=== PATIENT | female | born 1970 | race Caucasian/White ===

== ENCOUNTER 2016-07-25 07:30 | Inpatient (IN) | payer BC ==
[~2016-07-25 07:30] MED LIST: Lactated Ringers 1,000 ML IV SCH; Lidocaine 1%/Sod Bicarbonate in NS 8.4% 1 ML Syringe IV PRN; Sodium Chloride 0.9% 10 ML Syringe FLUSH PRN
[2016-08-22] MEDS ORDERED: Lidocaine 1%/Sod Bicarbonate in NS 8.4% 1 ML Syringe PRN (00:01)
[2016-08-22] MEDS ORDERED: Lactated Ringers 1,000 ML IV SCH (00:01)
[2016-08-22] MEDS ORDERED: Sodium Chloride 0.9% 10 ML Syringe FLUSH PRN (00:01)
[2016-08-22] MEDS ORDERED: ceFAZolin 1 GM Vial ONE (08:42)
--- NOTE | 2016-08-22 09:00 | PCM.PREANE ---
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.), Tingling (left foot noted currently) Other: Reports: Easy Bruising, Thyroid Problems (hypothyroid), Depression, Anxiety - Physical Assessment NPO Status Date: 08/21/16 NPO Status Time: 23:59 Pulse: 91 O2 Sat by Pulse Oximetry: 95 Respiratory Rate: 20 Blood Pressure: 169/91 Temperature: 37.6 C Height: 1.6 m Weight: 113 kg ASA Class: 2 Mental Status: Alert & Oriented x3 Airway Class: Mallampati = 3 Dentition: Reports: Normal Dentition, Caries Thyro-Mental Finger Breadths: 3 Mouth Opening Finger Breadths: 3 ROM/Head Extension: Full Lungs: Clear to auscultation, Normal respiratory effort Cardiovascular: Regular Rate, Regular Rhythm, No Murmurs - Lab Values: Laboratory Last Values MRSA (PCR) Negative 08/05/16 16:43 All labs reviewed and noted and within acceptable ranges to proceed with scheduled procedure. Platelets= 303,000 - Imaging/EKG Impressions: EKG: sinus rhythm rate= 80, probable left atrial enlargement. - Allergies Allergies/Adverse Reactions: Allergies Allergy/AdvReac Type Severity Reaction Status Date / Time adhesive Allergy Rash Verified 08/19/16 11:40 doxycycline AdvReac Nausea Verified 08/22/16 08:52 Sulfa (Sulfonamide AdvReac Tachycardia Verified 08/01/16 11:52 Antibiotics) - Anesthesia Plan Pre-Op Medication Ordered: None - Acknowledgements Anesthesia Type Planned: Spinal Pt an Appropriate Candidate for the Planned Anesthesia: Yes Alternatives and Risks of Anesthesia Discussed w Pt/Guardian: Yes Pt/Guardian Understands and Agrees with Anesthesia Plan: Yes PreAnesthesia Questionnaire HEENT History: Reports: None Other HEENT History: wears glasses Cardiovascular History: Reports: Hypertension Respiratory History: Reports: None Other Respiratory History: walking pneumonia Gastrointestinal History: Reports: GERD, Other (See Below) Other Gastrointestinal History: Postoperative nausea and vomiting Genitourinary History: Reports: None Other Genitourinary History: issues with bladder- hard time starting stream DISCHARGE SPECIALIST History: Reports: Musculoskeletal History: Reports: Other (See Below) Other Musculoskeletal History: Right knee pain Neurological History: Reports: Other (See Below) Other Neuro History: Resendez's Palsy Psychiatric History: Reports: Anxiety, Depression, Other (See Below) Other Psychiatric History: Grief, insomnia Endocrine/Metabolic History: Reports: Hypothyroidism Hematologic History: Reports: None Immunologic History: Reports: None Oncologic (Cancer) History: Reports: None Dermatologic History: Reports: None - Past Surgical History Head Surgeries/Procedures: Reports: None HEENT Surgical History: Reports: Tonsillectomy Cardiovascular Surgical History: Reports: None Respiratory Surgical History: Reports: None GI Surgical History: Reports: None Female Surgical History: Reports: Hysterectomy Endocrine Surgical History: Reports: None Neurological Surgical History: Reports: None Musculoskeletal Surgical History: Reports: None Oncologic Surgical History: Reports: None Dermatological Surgical History: Reports: None - SUBSTANCE USE Smoking Status *Q: Never Smoker Second Hand Smoke Exposure: No Recreational Drug Use History: No - HOME MEDS Home Medications: Home Meds Citalopram Hydrobromide [Celexa] 40 mg PO DAILY 11/08/14 [History] Hydrocodone/Acetaminophen [Hydrocodon-Acetaminophen 5-325] 1 tab PO Q4H PRN [History] LORazepam [Ativan] 1 mg PO QID PRN 11/08/14 [History] Levothyroxine 112 mcg PO DAILY 11/08/14 [History] Pantoprazole [ProTONIX] 40 mg PO DAILY 11/08/14 [History] Verapamil [Verelan] 240 mg PO DAILY 11/08/14 [History] buPROPion [Wellbutrin XL] 450 mg PO DAILY 11/08/14 [History] Furosemide [Lasix] 20 mg PO DAILY PRN 04/23/15 [History] Pregabalin [Lyrica] 150 mg PO BID PRN 08/19/16 [History] Zolpidem [Ambien] 10 mg PO BEDTIME 08/19/16 [History] oxyCODONE ER [OxyCONTIN] 10 mg PO BID PRN 08/19/16 [History] - CURRENT (IN HOUSE) MEDS Current Meds: Current Medications Aspirin (Ecotrin) 325 mg PO BID [facility] Bisacodyl (Dulcolax) 5 mg PO DAILY PRN PRN Reason: Constipation Morphine Sulfate 8 mg/Epinephrine HCl 0.3 mg/Cefuroxime Sodium 750 mg/Ketorolac Tromethamine 30 mg/Sodium Chloride 27.9 ml 0 mg .XX ONETIME ONE Stop: 08/22/16 10:31 Cyclobenzaprine HCl (Flexeril) 10 mg PO TID PRN PRN Reason: Spasms Docusate Sodium (Colace) 100 mg PO BID [facility] Famotidine (Pepcid) 20 mg PO Q12H [facility] Lactated Ringer's (Ringers, Lactated) 1,000 mls @ 125 mls/hr IV ASDIRECTED [facility] Cefazolin Sodium/Dextrose 2 gm (/ Premix) 50 mls @ 100 mls/hr IV Q8H [facility] Stop: 08/22/16 23:44 Ketorolac Tromethamine (Toradol) 15 mg IVPUSH Q6H PRN PRN Reason: Pain Stop: 08/22/16 13:14 Lidocaine/Sodium Bicarbonate (Buffered Lidocaine 1% In Ns 8.4%) 0.25 ml IV ONETIME PRN PRN Reason: Prior to IV Start Magnesium Hydroxide (Milk Of Magnesia) 30 ml PO BID PRN PRN Reason: Constipation Morphine Sulfate (Morphine) 2 mg IVPUSH Q2H PRN PRN Reason: Breakthrough Pain Multivitamins (Thera) 1 each PO WITHBREAKFAST [facility] Naloxone HCl (Narcan) 0.1 mg IVPUSH Q5M PRN PRN Reason: Oversedation Stop: 08/22/16 07:29 Ondansetron HCl (Zofran) 4 mg IVPUSH Q6H PRN PRN Reason: Nausea/Vomiting Scopolamine (Transderm-Scop) 1.5 mg TRDERM ONETIME ONE Stop: 08/22/16 08:18 Senna (Senna) 8.6 mg PO BID PRN PRN Reason: Constipation Sodium Chloride (Saline Flush) 10 ml FLUSH ASDIRECTED PRN PRN Reason: Keep Vein Open Tapentadol (Nucynta) 50 - 100 mg PO Q6H PRN PRN Reason: Pain Discontinued Medications Bupivacaine HCl (Marcaine 0.25%) Confirm Administered Dose 30 ml .ROUTE .STK- MED ONE Stop: 08/22/16 08:43 Cefazolin Sodium (Ancef) Confirm Administered Dose 2 gm .ROUTE .STK-MED ONE Stop: 08/22/16 08:43 Lactated Ringer's (Ringers, Lactated) 1,000 mls @ 125 mls/hr IV ASDIRECTED [facility] Iodine (Iodine 2% Mild Tincture) Confirm Administered Dose 30 ml .ROUTE .STK- MED ONE Stop: 08/22/16 08:43 Lidocaine/Sodium Bicarbonate (Buffered Lidocaine 1% In Ns 8.4%) 0.25 ml IV ONETIME PRN PRN Reason: Prior to IV Start Sodium Chloride (Saline Flush) 10 ml FLUSH ASDIRECTED PRN PRN Reason: Keep Vein Open Tranexamic Acid (Cyklokapron) Confirm Administered Dose 1,000 mg .ROUTE .STK- MED ONE Stop: 08/22/16 08:43
[2016-08-22] MEDS ORDERED: Morphine PF 10 MG/10 ML SDV ONE (09:28)
[2016-08-22] MEDS ORDERED: Scopolamine 1.5 MG Transdermal Patch TRDERM ONE (09:30)
[2016-08-22] MEDS ORDERED: Lactated Ringers 1,000 ML ONE ×2 (09:31→12:22)
[2016-08-22] MEDS ORDERED: Midazolam 1 MG/ML 2 ML SDV ONE ×5 (09:32→12:29)
[2016-08-22] MEDS ORDERED: Propofol 200 MG/20 ML SDV ONE ×4 (09:32→12:22)
[2016-08-22] MEDS ORDERED: fentaNYL 100 MCG/2 ML SDV ONE (09:32)
[2016-08-22] MEDS ORDERED: Ondansetron 4 MG/2 ML SDV IVPUSH PRN ×2 (10:44→12:00)
[2016-08-22] MEDS ORDERED: Meperidine PF 50 MG/ML Syringe IVPUSH PRN (10:44)
[2016-08-22] MEDS ORDERED: HYDROmorphone 0.5 MG/0.5 ML Syringe IVPUSH PRN (10:44)
[2016-08-22] MEDS ORDERED: ePHEDrine 50 MG/ML SDV IVPUSH PRN (10:44)
[2016-08-22] MEDS ORDERED: diphenhydrAMINE 50 MG/ML SDV IVPUSH PRN (10:44)
[2016-08-22] MEDS ORDERED: fentaNYL 100 MCG/2 ML SDV IVPUSH PRN (10:44)
[2016-08-22] MEDS ORDERED: Midazolam 1 MG/ML 2 ML SDV IVPUSH PRN (10:44)
[2016-08-22] MEDS ORDERED: Phenylephrine 1 MG in Sodium Chloride 0.9% 10 ML IV SCH (10:45)
[2016-08-22] MEDS ORDERED: Phenylephrine/Normal Saline 100 MCG/ML 10 ML Syringe ONE (11:02)
[2016-08-22] MEDS: Iodine/Sodium Iodide 2% Tincture 30 ML Bottle ONE ×2 (11:06→11:50)
[2016-08-22] MEDS: ceFAZolin 1 GM Vial ONE ×2 (11:09→11:54)
[2016-08-22] MEDS: Morphine 8 MG, EPINEPHrine 0.3 MG, Cefuroxime 750 MG, Ketorolac 30 MG, Sodium Chloride ... ONE ×15 (11:10→19:48)
[2016-08-22] MEDS: Bupivacaine 0.25% 30 ML SDV ONE ×2 (11:10→12:00)
[2016-08-22] MEDS ORDERED: Magnesium Hydroxide 400 MG/5 ML Susp 30 ML Cup PO PRN (12:00)
[2016-08-22] MEDS ORDERED: Ketorolac 15 MG/ML SDV IVPUSH PRN ×2 (12:00→20:55)
[2016-08-22] MEDS ORDERED: Sennosides 8.6 MG Tab PO PRN (12:00)
[2016-08-22] MEDS ORDERED: Bisacodyl 5 MG Tab PO PRN (12:00)
[2016-08-22] MEDS ORDERED: Naloxone 0.4 MG/ML SDV IVPUSH PRN (12:00)
--- NOTE | 2016-08-22 12:51 | PCM.POSTAN ---
POST ANESTHESIA ASSESSMENT - MENTAL STATUS Mental Status: alert - VITAL SIGNS Pulse Rate: 70 SaO2: 91 Resp Rate: 13 Blood Pressure: 120/66 Temperature: 36.3 C - RESPIRATORY Respiratory Status: respiratory rate WNL, airway patent, O2 saturation stable - CARDIOVASCULAR CV Status: pulse rate WNL, blood pressure stable - GASTROINTESTINAL GI Status: no symptoms - POST OP HYDRATION Hydration Status: adequate & stable
[2016-08-22] MEDS: Morphine 2 MG/ML Syringe IVPUSH PRN ×2 (15:10→17:08)
[2016-08-22] MEDS: Cyclobenzaprine 10 MG Tab PO PRN ×2 (15:41→23:33)
[2016-08-22] MEDS: ceFAZolin 2 GM in Premix Bag 1 BAG IV SCH (17:28)
--- NOTE | 2016-08-22 17:29 | PCM.CONSN ---
- General Info Date of Service: 08/22/16 Subjective Update: Patient is a 45 year old morbidly obese female post op, right total knee arthroplasty. Had a history of knee pain for over 7 years. Denies complaints at this time. Hospitalist service has been asked to help management post op medical needs. Functional Status: Reports: pain controlled, tolerating diet, urinating - Review of Systems General: Reports: No Symptoms HEENT: Reports: no symptoms Pulmonary: Reports: no symptoms Cardiovascular: Reports: No Symptoms Gastrointestinal: Reports: No symptoms Genitourinary: Reports: no symptoms Musculoskeletal: Reports: no symptoms Skin: Reports: no symptoms Neurological: Reports: No Symptoms Psychiatric: Reports: no symptoms - Patient Data Vitals - most recent: Last Vital Signs Temp 36.5 C 08/22/16 13:45 Pulse 71 08/22/16 13:45 Resp 14 08/22/16 13:45 BP 116/71 08/22/16 13:45 Pulse Ox 95 08/22/16 13:45 Weight - most recent: 113 kg I&O - last 24 hours: Intake & Output 08/22/16 08/22/16 08/22/16 06:59 14:59 22:59 Intake Total 350 Output Total 1000 Balance -650 Med Orders - Current: Current Medications Aspirin (Ecotrin) 325 mg PO BID [facility] Bisacodyl (Dulcolax) 5 mg PO DAILY PRN PRN Reason: Constipation Cyclobenzaprine HCl (Flexeril) 10 mg PO TID PRN PRN Reason: Spasms Last Admin: 08/22/16 15:41 Dose: 10 mg Docusate Sodium (Colace) 100 mg PO BID [facility] Famotidine (Pepcid) 20 mg PO BID [facility] Cefazolin Sodium/Dextrose 2 gm (/ Premix) 50 mls @ 100 mls/hr IV Q8H [facility] Stop: 08/23/16 10:29 Ketorolac Tromethamine (Toradol) 15 mg IVPUSH Q6H PRN PRN Reason: Pain Stop: 08/22/16 18:01 Last Admin: 08/22/16 14:35 Dose: 15 mg Magnesium Hydroxide (Milk Of Magnesia) 30 ml PO BID PRN PRN Reason: Constipation Morphine Sulfate (Morphine) 2 mg IVPUSH Q2H PRN PRN Reason: Breakthrough Pain Last Admin: 08/22/16 17:08 Dose: 2 mg [facility] Ondansetron HCl (Zofran) 4 mg IVPUSH Q6H PRN PRN Reason: Nausea/Vomiting Senna (Senna) 8.6 mg PO BID PRN PRN Reason: Constipation Tapentadol (Nucynta) 50 - 100 mg PO Q6H PRN PRN Reason: Pain Discontinued Medications Bupivacaine HCl (Marcaine 0.25%) Confirm Administered Dose 30 ml .ROUTE .STK- MED ONE Stop: 08/22/16 08:43 Last Admin: 08/22/16 12:00 Dose: 30 ml Cefazolin Sodium (Ancef) Confirm Administered Dose 2 gm .ROUTE .STK-MED ONE Stop: 08/22/16 08:43 Cefazolin Sodium (Ancef) Confirm Administered Dose 2 gm .ROUTE .STK-MED ONE Stop: 08/22/16 09:32 Last Admin: 08/22/16 11:54 Dose: 2 gm Morphine Sulfate 8 mg/Epinephrine HCl 0.3 mg/Cefuroxime Sodium 750 mg/Ketorolac Tromethamine 30 mg/Sodium Chloride 27.9 ml 0 mg .XX ONETIME ONE Stop: 08/22/16 10:31 Last Admin: 08/22/16 11:59 Dose: 788.3 mg Diphenhydramine HCl (Benadryl) 25 mg IVPUSH Q6H PRN PRN Reason: pruritis Stop: 08/22/16 13:30 Ephedrine Sulfate (Ephedrine Sulfate) 5 mg IVPUSH ASDIRECTED PRN PRN Reason: Hypotension Stop: 08/22/16 13:30 Fentanyl (Sublimaze) Confirm Administered Dose 100 mcg .ROUTE .STK-MED ONE Stop: 08/22/16 09:33 Fentanyl (Sublimaze) 50 mcg IVPUSH Q5M PRN PRN Reason: Pain Stop: 08/22/16 11:00 Hydromorphone HCl (Dilaudid) 0.5 mg IVPUSH Q15M PRN PRN Reason: severe pain Stop: 08/22/16 11:00 Lactated Ringer's (Ringers, Lactated) 1,000 mls @ 125 mls/hr IV ASDIRECTED [facility] Lactated Ringer's (Ringers, Lactated) 1,000 mls @ 125 mls/hr IV ASDIRECTED [facility] Stop: 08/22/16 23:00 Last Admin: 08/22/16 09:15 Dose: 125 mls/hr Lidocaine HCl (Xylocaine-Mpf 1%) Confirm Administered Dose 10 mls @ as directed .ROUTE .STK-MED ONE Stop: 08/22/16 09:32 Lactated Ringer's (Ringers, Lactated) Confirm Administered Dose 1,000 mls @ as directed .ROUTE .STK-MED ONE Stop: 08/22/16 09:32 Phenylephrine HCl 1 mg/ Sodium (Chloride) 10.1 mls @ 1 mls/sec IV TITRATE [facility] Stop: 08/22/16 13:30 Lactated Ringer's (Ringers, Lactated) Confirm Administered Dose 1,000 mls @ as directed .ROUTE .STK-MED ONE Stop: 08/22/16 12:23 Iodine (Iodine 2% Mild Tincture) Confirm Administered Dose 30 ml .ROUTE .STK- MED ONE Stop: 08/22/16 08:43 Last Admin: 08/22/16 11:50 Dose: 18 ml Lidocaine/Sodium Bicarbonate (Buffered Lidocaine 1% In Ns 8.4%) 0.25 ml IV ONETIME PRN PRN Reason: Prior to IV Start Lidocaine/Sodium Bicarbonate (Buffered Lidocaine 1% In Ns 8.4%) 0.25 ml .XX ONETIME PRN PRN Reason: Prior to IV Start Stop: 08/22/16 15:00 Last Admin: 08/22/16 09:14 Dose: 0.25 ml Meperidine HCl (Demerol) 12.5 mg IVPUSH ONETIME PRN PRN Reason: shivering Stop: 08/23/16 10:45 Midazolam HCl (Versed 1 Mg/Ml) Confirm Administered Dose 2 mg .ROUTE .STK-MED ONE Stop: 08/22/16 09:33 Midazolam HCl (Versed 1 Mg/Ml) Confirm Administered Dose 2 mg .ROUTE .STK-MED ONE Stop: 08/22/16 10:01 Midazolam HCl (Versed 1 Mg/Ml) 2 mg IVPUSH ONETIME PRN PRN Reason: Sedation Stop: 08/22/16 13:30 Midazolam HCl (Versed 1 Mg/Ml) Confirm Administered Dose 2 mg .ROUTE .STK-MED ONE Stop: 08/22/16 11:01 Midazolam HCl (Versed 1 Mg/Ml) Confirm Administered Dose 2 mg .ROUTE .STK-MED ONE Stop: 08/22/16 12:23 Midazolam HCl (Versed 1 Mg/Ml) Confirm Administered Dose 2 mg .ROUTE .STK-MED ONE Stop: 08/22/16 12:30 Morphine Sulfate (Duramorph Pf) Confirm Administered Dose 10 mg .ROUTE .STK-MED ONE Stop: 08/22/16 09:29 Naloxone HCl (Narcan) 0.1 mg IVPUSH Q5M PRN PRN Reason: Oversedation Stop: 08/22/16 12:16 Ondansetron HCl (Zofran) 4 mg IVPUSH ONETIME PRN PRN Reason: Nausea/Vomiting Stop: 08/22/16 13:30 Phenylephrine HCl (Phenylephrine In Ns 100 Mcg/Ml) Confirm Administered Dose 1 mg .ROUTE .STK-MED ONE Stop: 08/22/16 11:03 Propofol (Diprivan 20 Ml) Confirm Administered Dose 400 mg .ROUTE .STK-MED ONE Stop: 08/22/16 09:33 Propofol (Diprivan 20 Ml) Confirm Administered Dose 200 mg .ROUTE .STK-MED ONE Stop: 08/22/16 10:46 Propofol (Diprivan 20 Ml) Confirm Administered Dose 200 mg .ROUTE .STK-MED ONE Stop: 08/22/16 11:09 Propofol (Diprivan 20 Ml) Confirm Administered Dose 200 mg .ROUTE .STK-MED ONE Stop: 08/22/16 12:23 Scopolamine (Transderm-Scop) 1.5 mg TRDERM ONETIME ONE Stop: 08/22/16 09:31 Last Admin: 08/22/16 09:32 Dose: 1.5 mg Sodium Chloride (Saline Flush) 10 ml FLUSH ASDIRECTED PRN PRN Reason: Keep Vein Open Sodium Chloride (Saline Flush) 10 ml FLUSH ASDIRECTED PRN PRN Reason: Keep Vein Open Stop: 08/22/16 15:00 Tranexamic Acid (Cyklokapron) Confirm Administered Dose 1,000 mg .ROUTE .STK- MED ONE Stop: 08/22/16 08:43 Last Admin: 08/22/16 12:06 Dose: 1,000 mg - Exam Quality Assessment: DVT prophylaxis General: alert, oriented, cooperative, no acute distress HEENT: Pupils equal, Pupils reactive, EOMI Neck: supple, trachea midline, no JVD Lungs: Normal respiratory effort Cardiovascular: Regular Rate, Regular Rhythm Abdomen: bowel sounds present, soft, no tenderness, no distension (Female) Exam: Deferred Back Exam: Normal Inspection Extremities: normal pulses Skin: warm Wound/Incisions: dressing dry and intact, no drainage Neurological: no new focal deficit, normal speech Psy/Mental Status: alert, normal affect, normal mood Consult PN Assessment/Plan POD#: 0 Procedures: Procedures COMPLETE CBC W/AUTO DIFF WBC (04/23/15) COMPREHEN METABOLIC PANEL (04/23/15) CULTURE AEROBIC IDENTIFY (10/28/13) ELECTROCARDIOGRAM TRACING (04/23/15) EMERGENCY DEPT VISIT (04/23/15) EMERGENCY DEPT VISIT (03/07/15) EMERGENCY DEPT VISIT (11/08/14) MASSAGE THERAPY (06/18/13) MICROBE SUSCEPTIBLE MARIMAR (10/28/13) MRI JNT OF LWR EXTRE W/O DYE (08/05/15) N BLOCK INJ TRIGEMINAL (03/07/15) ROUTINE VENIPUNCTURE (04/23/15) THER/PROPH/DIAG INJ SC/IM (11/08/14) THERAPEUTIC EXERCISES (06/18/13) URINALYSIS AUTO W/SCOPE (04/23/15) URINE BACTERIA CULTURE (10/28/13) US URINE CAPACITY MEASURE (04/23/15) (1) Morbid obesity with BMI of 40.0-44.9, adult SNOMED Code(s): 009776881 Code(s): E66.01 - MORBID (SEVERE) OBESITY DUE TO EXCESS CALORIES; Z68.41 - BODY MASS INDEX (BMI) 40.0-44.9, ADULT Current Visit: Yes (2) Osteoarthritis SNOMED Code(s): 147918864 Code(s): M19.90 - UNSPECIFIED OSTEOARTHRITIS, UNSPECIFIED SITE Current Visit: Yes (3) Hypertension SNOMED Code(s): 04888044 Code(s): I10 - ESSENTIAL (PRIMARY) HYPERTENSION Current Visit: Yes (4) Hypothyroid SNOMED Code(s): 37336698 Code(s): E03.9 - HYPOTHYROIDISM, UNSPECIFIED Current Visit: Yes (5) Anxiety SNOMED Code(s): 46749296 Code(s): F41.9 - ANXIETY DISORDER, UNSPECIFIED Current Visit: No (6) Hypertensive heart disease SNOMED Code(s): 40280237 Code(s): I11.9 - HYPERTENSIVE HEART DISEASE WITHOUT HEART FAILURE Current Visit: No (7) History of arthroplasty of right knee SNOMED Code(s): 810627950, 423948403 Code(s): Z96.651 - PRESENCE OF RIGHT ARTIFICIAL KNEE JOINT Current Visit: Yes Problem List Initiated/Reviewed/Updated: Yes Plan: Impression: POD 0, S/P Right knee arthroplasty History of right knee pian; documented 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
[2016-08-22] MEDS ORDERED: HYDROmorphone 0.5 MG/0.5 ML Syringe IVPUSH ONE (18:46)
[2016-08-22] MEDS ORDERED: HYDROmorphone 0.5 MG/0.5 ML Syringe ONE (19:19)
[2016-08-22] MEDS ORDERED: buPROPion 150 MG Tab.ER PO SCH (21:00)
[2016-08-22] MEDS ORDERED: Famotidine 20 MG Tab PO SCH (21:00)
[2016-08-22] MEDS ORDERED: Citalopram 20 MG Tab PO SCH (21:00)
[2016-08-22] MEDS ORDERED: Verapamil 120 MG Tab.ER PO SCH (21:00)
[2016-08-22] MEDS ORDERED: Levothyroxine 112 MCG Tab PO SCH (21:00)
[2016-08-22] MEDS ORDERED: Pantoprazole 40 MG Tab.CR PO SCH (21:00)
[2016-08-22] MEDS: Docusate Sodium 100 MG Cap PO SCH (21:11)
[2016-08-22] MEDS: Pregabalin 75 MG Cap PO PRN (21:11)
[2016-08-22] MEDS: Pantoprazole 40 MG Tab.CR PO SCH (21:12)
[2016-08-22] MEDS: Levothyroxine 112 MCG Tab PO SCH (21:13)
[2016-08-22] MEDS: buPROPion 150 MG Tab.ER PO SCH (21:13)
[2016-08-22] MEDS: Verapamil 120 MG Tab.ER PO SCH (21:14)
[2016-08-22] MEDS: Citalopram 20 MG Tab PO SCH (21:16)
[2016-08-22] MEDS ORDERED: Ketorolac 15 MG/ML SDV IVPUSH ONE (23:22)
[2016-08-23] MEDS: Morphine 2 MG/ML Syringe IVPUSH PRN ×4 (01:28→19:53)
[2016-08-23] MEDS: ceFAZolin 2 GM in Premix Bag 1 BAG IV SCH ×2 (01:29→09:54)
--- NOTE | 2016-08-23 08:51 | PCM.PN ---
- General Info Date of Service: 08/23/16 Admission Dx/Problem (Free Text): POD #1 Rt TKA Pain is out of control this morning and overnight. She is anxious and nauseous "from the pain", despite zofran and scopolamine patch. No other symptoms of SOB, palpitations, CP, abd pain, is voiding without problems. Functional Status: Reports: tolerating diet, ambulating, urinating. Denies: pain controlled, new symptoms - Review of Systems General: Reports: No Symptoms HEENT: Reports: no symptoms Pulmonary: Reports: no symptoms Cardiovascular: Reports: No Symptoms Gastrointestinal: Reports: No symptoms Genitourinary: Reports: no symptoms Musculoskeletal: Reports: leg pain Skin: Reports: no symptoms Neurological: Reports: No Symptoms Psychiatric: Reports: no symptoms - Patient Data Vitals - most recent: Last Vital Signs Temp 99.0 F 08/23/16 08:40 Pulse 82 08/23/16 08:40 Resp 16 08/23/16 08:40 BP 124/63 08/23/16 08:40 Pulse Ox 91 L 08/23/16 08:40 Weight - most recent: 258 lb 14.4 oz I&O - last 24 hours: Intake & Output 08/22/16 08/23/16 08/23/16 22:59 06:59 14:59 Intake Total 1000 Output Total 900 275 Balance 100 -275 Lab Results last 24 hrs: Laboratory Results - last 24 hr 08/23/16 08/23/16 Range/Units 06:00 06:00 WBC 7.96 (3.98-10.04) K/mm3 RBC 3.91 L (3.98-5.22) M/mm3 Hgb 11.2 (11.2-15.7) gm/L Hct 34.4 (34.1-44.9) % MCV 88.0 (79.4-94.8) fl MCH 28.6 (25.6-32.2) pg MCHC 32.6 (32.2-35.5) g/dl RDW Std Deviation 48.7 H (36.4-46.3) fL Plt Count 236 (182-369) K/mm3 MPV 9.3 L (9.4-12.3) fl Neut % (Auto) 55.9 (34.0-71.1) % Lymph % (Auto) 20.9 (19.3-51.7) % Leake % (Auto) 15.8 H (4.7-12.5) % Eos % (Auto) 6.7 H (0.7-5.8) Baso % (Auto) 0.4 (0.1-1.2) % Neut # (Auto) 4.46 (1.56-6.13) K/mm3 Lymph # (Auto) 1.66 (1.18-3.74) K/mm3 Leake # (Auto) 1.26 H (0.24-0.36) K/mm3 Eos # (Auto) 0.53 H (0.04-0.36) K/mm3 Baso # (Auto) 0.03 (0.01-0.08) K/mm3 Manual Slide Review Normal smear Sodium 138 (136-145) mEq/L Potassium 3.9 (3.5-5.1) mEq/L Chloride 102 (98-107) mEq/L Carbon Dioxide 30 (21-32) mEq/L Anion Gap 9.9 (5-15) BUN 14 (7-18) mg/dL Creatinine 1.0 (0.55-1.02) mg/dL Est Cr Clr Drug Dosing 59.37 mL/min Estimated GFR (MDRD) > 60 (>60) mL/min BUN/Creatinine Ratio 14.0 (14-18) Glucose 111 H (74-106) mg/dL Calcium 8.3 L (8.5-10.1) mg/dL Total Bilirubin 0.3 (0.2-1.0) mg/dL AST 20 (15-37) U/L ALT 21 (14-59) U/L Alkaline Phosphatase 62 (46-116) U/L Total Protein 6.4 (6.4-8.2) g/dl Albumin 3.2 L (3.4-5.0) g/dl Globulin 3.2 gm/dL Albumin/Globulin Ratio 1.0 (1-2) Med Orders - Current: Current Medications Aspirin (Ecotrin) 325 mg PO BID [facility] Bisacodyl (Dulcolax) 5 mg PO DAILY PRN PRN Reason: Constipation Bupropion HCl (Wellbutrin Xl) [address] [facility] Last Admin: 08/22/16 21:13 Dose: 450 mg Citalopram Hydrobromide (Celexa) [address] [facility] Last Admin: 08/22/16 21:16 Dose: 40 mg Cyclobenzaprine HCl (Flexeril) 10 mg PO TID PRN PRN Reason: Spasms Last Admin: 08/22/16 23:33 Dose: 10 mg Docusate Sodium (Colace) [address] [facility] Last Admin: 08/22/16 21:11 Dose: 100 mg Cefazolin Sodium/Dextrose 2 gm (/ Premix) 50 mls @ 100 mls/hr IV Q8H [facility] Stop: 08/23/16 10:29 Last Admin: 08/23/16 01:29 Dose: 100 mls/hr Levothyroxine Sodium (Levothyroxine) [address] [facility] Last Admin: 08/22/16 21:13 Dose: 112 mcg Magnesium Hydroxide (Milk Of Magnesia) 30 ml PO BID PRN PRN Reason: Constipation Morphine Sulfate (Morphine) 2 mg IVPUSH Q2H PRN PRN Reason: Breakthrough Pain Last Admin: 08/23/16 01:28 Dose: 2 mg Multivitamins (Thera) [address] [facility] Ondansetron HCl (Zofran) 4 mg IVPUSH Q6H PRN PRN Reason: Nausea/Vomiting Pantoprazole Sodium (Protonix) [address] [facility] Last Admin: 08/22/16 21:12 Dose: 40 mg Pregabalin (Lyrica) 150 mg PO BID PRN PRN Reason: Pain Last Admin: 08/22/16 21:11 Dose: 150 mg Senna (Senna) 8.6 mg PO BID PRN PRN Reason: Constipation Tapentadol (Nucynta) 50 - 100 mg PO Q6H PRN PRN Reason: Pain Last Admin: 08/23/16 05:09 Dose: 100 mg Verapamil HCl (Calan Sr) [address] [facility] Last Admin: 08/22/16 21:14 Dose: 240 mg Discontinued Medications Bupivacaine HCl (Marcaine 0.25%) Confirm Administered Dose 30 ml .ROUTE .STK- MED ONE Stop: 08/22/16 08:43 Last Admin: 08/22/16 12:00 Dose: 30 ml Bupropion HCl (Wellbutrin Xl) [address] [facility] Cefazolin Sodium (Ancef) Confirm Administered Dose 2 gm .ROUTE .STK-MED ONE Stop: 08/22/16 08:43 Cefazolin Sodium (Ancef) Confirm Administered Dose 2 gm .ROUTE .STK-MED ONE Stop: 08/22/16 09:32 Last Admin: 08/22/16 11:54 Dose: 2 gm Citalopram Hydrobromide (Celexa) [address] [facility] Morphine Sulfate 8 mg/Epinephrine HCl 0.3 mg/Cefuroxime Sodium 750 mg/Ketorolac Tromethamine 30 mg/Sodium Chloride 27.9 ml 0 mg .XX ONETIME ONE Stop: 08/22/16 10:31 Last Admin: 08/22/16 19:48 Dose: Not Given Diphenhydramine HCl (Benadryl) 25 mg IVPUSH Q6H PRN PRN Reason: pruritis Stop: 08/22/16 13:30 Ephedrine Sulfate (Ephedrine Sulfate) 5 mg IVPUSH ASDIRECTED PRN PRN Reason: Hypotension Stop: 08/22/16 13:30 Famotidine (Pepcid) [address] [facility] Last Admin: 08/22/16 21:12 Dose: 20 mg Fentanyl (Sublimaze) Confirm Administered Dose 100 mcg .ROUTE .STK-MED ONE Stop: 08/22/16 09:33 Fentanyl (Sublimaze) 50 mcg IVPUSH Q5M PRN PRN Reason: Pain Stop: 08/22/16 11:00 Hydromorphone HCl (Dilaudid) 0.5 mg IVPUSH Q15M PRN PRN Reason: severe pain Stop: 08/22/16 11:00 Hydromorphone HCl (Dilaudid) 0.5 mg IVPUSH ONETIME ONE Stop: 08/22/16 18:47 Last Admin: 08/22/16 18:56 Dose: 0.5 mg Hydromorphone HCl (Dilaudid) Confirm Administered Dose 0.5 mg .ROUTE .STK-MED ONE Stop: 08/22/16 19:20 Last Admin: 08/22/16 19:25 Dose: 0.5 mg Lactated Ringer's (Ringers, Lactated) 1,000 mls @ 125 mls/hr IV ASDIRECTED [facility] Lactated Ringer's (Ringers, Lactated) 1,000 mls @ 125 mls/hr IV ASDIRECTED [facility] Stop: 08/22/16 23:00 Last Admin: 08/22/16 09:15 Dose: 125 mls/hr Lidocaine HCl (Xylocaine-Mpf 1%) Confirm Administered Dose 10 mls @ as directed .ROUTE .STK-MED ONE Stop: 08/22/16 09:32 Lactated Ringer's (Ringers, Lactated) Confirm Administered Dose 1,000 mls @ as directed .ROUTE .STK-MED ONE Stop: 08/22/16 09:32 Phenylephrine HCl 1 mg/ Sodium (Chloride) 10.1 mls @ 1 mls/sec IV TITRATE [facility] Stop: 08/22/16 13:30 Lactated Ringer's (Ringers, Lactated) Confirm Administered Dose 1,000 mls @ as directed .ROUTE .STK-MED ONE Stop: 08/22/16 12:23 Iodine (Iodine 2% Mild Tincture) Confirm Administered Dose 30 ml .ROUTE .STK- MED ONE Stop: 08/22/16 08:43 Last Admin: 08/22/16 11:50 Dose: 18 ml Ketorolac Tromethamine (Toradol) 15 mg IVPUSH Q6H PRN PRN Reason: Pain Stop: 08/22/16 18:01 Last Admin: 08/22/16 14:35 Dose: 15 mg Ketorolac Tromethamine (Toradol) 15 mg IVPUSH Q6H PRN PRN Reason: Pain Stop: 08/22/16 20:56 Ketorolac Tromethamine (Toradol) 15 mg IVPUSH ONETIME ONE Stop: 08/22/16 23:23 Last Admin: 08/22/16 23:33 Dose: 15 mg Lidocaine/Sodium Bicarbonate (Buffered Lidocaine 1% In Ns 8.4%) 0.25 ml IV ONETIME PRN PRN Reason: Prior to IV Start Lidocaine/Sodium Bicarbonate (Buffered Lidocaine 1% In Ns 8.4%) 0.25 ml .XX ONETIME PRN PRN Reason: Prior to IV Start Stop: 08/22/16 15:00 Last Admin: 08/22/16 09:14 Dose: 0.25 ml Meperidine HCl (Demerol) 12.5 mg IVPUSH ONETIME PRN PRN Reason: shivering Stop: 08/23/16 10:45 Midazolam HCl (Versed 1 Mg/Ml) Confirm Administered Dose 2 mg .ROUTE .STK-MED ONE Stop: 08/22/16 09:33 Midazolam HCl (Versed 1 Mg/Ml) Confirm Administered Dose 2 mg .ROUTE .STK-MED ONE Stop: 08/22/16 10:01 Midazolam HCl (Versed 1 Mg/Ml) 2 mg IVPUSH ONETIME PRN PRN Reason: Sedation Stop: 08/22/16 13:30 Midazolam HCl (Versed 1 Mg/Ml) Confirm Administered Dose 2 mg .ROUTE .STK-MED ONE Stop: 08/22/16 11:01 Midazolam HCl (Versed 1 Mg/Ml) Confirm Administered Dose 2 mg .ROUTE .STK-MED ONE Stop: 08/22/16 12:23 Midazolam HCl (Versed 1 Mg/Ml) Confirm Administered Dose 2 mg .ROUTE .STK-MED ONE Stop: 08/22/16 12:30 Morphine Sulfate (Duramorph Pf) Confirm Administered Dose 10 mg .ROUTE .STK-MED ONE Stop: 08/22/16 09:29 Naloxone HCl (Narcan) 0.1 mg IVPUSH Q5M PRN PRN Reason: Oversedation Stop: 08/22/16 12:16 Ondansetron HCl (Zofran) 4 mg IVPUSH ONETIME PRN PRN Reason: Nausea/Vomiting Stop: 08/22/16 13:30 Pantoprazole Sodium (Protonix) 40 mg PO ACBREAKFAST [facility] Phenylephrine HCl (Phenylephrine In Ns 100 Mcg/Ml) Confirm Administered Dose 1 mg .ROUTE .STK-MED ONE Stop: 08/22/16 11:03 Propofol (Diprivan 20 Ml) Confirm Administered Dose 400 mg .ROUTE .STK-MED ONE Stop: 08/22/16 09:33 Propofol (Diprivan 20 Ml) Confirm Administered Dose 200 mg .ROUTE .STK-MED ONE Stop: 08/22/16 10:46 Propofol (Diprivan 20 Ml) Confirm Administered Dose 200 mg .ROUTE .STK-MED ONE Stop: 08/22/16 11:09 Propofol (Diprivan 20 Ml) Confirm Administered Dose 200 mg .ROUTE .STK-MED ONE Stop: 08/22/16 12:23 Scopolamine (Transderm-Scop) 1.5 mg TRDERM ONETIME ONE Stop: 08/22/16 09:31 Last Admin: 08/22/16 09:32 Dose: 1.5 mg Sodium Chloride (Saline Flush) 10 ml FLUSH ASDIRECTED PRN PRN Reason: Keep Vein Open Sodium Chloride (Saline Flush) 10 ml FLUSH ASDIRECTED PRN PRN Reason: Keep Vein Open Stop: 08/22/16 15:00 Tranexamic Acid (Cyklokapron) Confirm Administered Dose 1,000 mg .ROUTE .STK- MED ONE Stop: 08/22/16 08:43 Last Admin: 08/22/16 12:06 Dose: 1,000 mg Verapamil HCl (Calan Sr) 240 mg PO DAILY [facility] - Exam Quality Assessment: DVT prophylaxis General: alert, oriented, cooperative, no acute distress HEENT: Pupils equal, Pupils reactive, EOMI, Mucous membr. moist/pink Neck: supple Lungs: Clear to auscultation, Normal respiratory effort Cardiovascular: Regular Rate, Regular Rhythm Abdomen: bowel sounds present, soft, no tenderness (Female) Exam: Deferred Extremities: no edema, other (teds, SCD's bilat) Peripheral Pulses: 2+: Dorsalis Pedis (L), Dorsalis Pedis (R) Neurological: no new focal deficit Psy/Mental Status: alert, normal affect, normal mood - Problem List & Annotations (1) S/P total knee arthroplasty SNOMED Code(s): 2446952569772, 352376731, 9757636760504 Code(s): Z96.659 - PRESENCE OF UNSPECIFIED ARTIFICIAL KNEE JOINT Status: Acute Priority: High Current Visit: Yes Qualifiers: Laterality: right Qualified Code(s): Z96.651 - Presence of right artificial knee joint (2) Osteoarthritis SNOMED Code(s): 849213495 Code(s): M19.90 - UNSPECIFIED OSTEOARTHRITIS, UNSPECIFIED SITE Status: Acute Priority: High Current Visit: Yes Qualifiers: Osteoarthritis location: knee Osteoarthritis type: primary Laterality: right Qualified Code(s): M17.11 - Unilateral primary osteoarthritis, right knee (3) Morbid obesity with BMI of 40.0-44.9, adult SNOMED Code(s): 782060381 Code(s): E66.01 - MORBID (SEVERE) OBESITY DUE TO EXCESS CALORIES; Z68.41 - BODY MASS INDEX (BMI) 40.0-44.9, ADULT Status: Chronic Priority: Medium Current Visit: Yes (4) Hypertensive heart disease SNOMED Code(s): 36218134 Code(s): I11.9 - HYPERTENSIVE HEART DISEASE WITHOUT HEART FAILURE Status: Chronic Priority: Medium Current Visit: No Qualifiers: Heart failure presence: without heart failure Qualified Code(s): I11.9 - Hypertensive heart disease without heart failure (5) Anxiety SNOMED Code(s): 91531763 Code(s): F41.9 - ANXIETY DISORDER, UNSPECIFIED Status: Chronic Priority: Medium Current Visit: No - Problem List Review Problem List Initiated/Reviewed/Updated: Yes - Plan Plan:: POD #1, Rt TKA with Dr. Griffin -Pain management and DVT prophylax per primary team -Pain is not controlled this morning -PT/OT -RT/IS -Hgb 11.2 this am -VSS Chronic: HTN- good control Obesity Anxiety--not well controlled this morning Other: CM/SW for assist with DC planning Patient medically stable, once pain controlled, will be ok for discharge home. Patient is Full Code status.
--- NOTE | 2016-08-23 09:10 | CR ---
Right knee: AP and lateral views of the right knee were obtained. Comparison: Previous MRI right knee study of 08/05/15. Recently placed right knee prosthesis is seen. Components are aligned. Soft tissue air is noted from the surgical procedure. Underlying bony structures are intact. Impression: 1. Satisfactory radiographic appearance of recently placed right knee prosthesis. Diagnostic code #2
[2016-08-23] MEDS: Aspirin 325 MG Tab.EC PO SCH ×2 (09:48→22:48)
[2016-08-23] MEDS: Docusate Sodium 100 MG Cap PO SCH ×2 (09:48→22:48)
[2016-08-23] MEDS: Multivitamins,Therapeutic Tab PO SCH (09:48)
[2016-08-23] MEDS: Pregabalin 75 MG Cap PO PRN (10:07)
[2016-08-23] MEDS ORDERED: Furosemide 20 MG Tab PO PRN (11:49)
--- NOTE | 2016-08-23 12:27 | PCM48HPAN ---
Post Anesthesia Note - EVALUATION WITHIN 48HRS OF ANESTHETIC Vital Signs in Normal Range: Yes Patient Participated in Evaluation: Yes Respiratory Function Stable: Yes Airway Patent: Yes Cardiovascular Function Stable: Yes Hydration Status Stable: Yes Pain Control Satisfactory: Yes Nausea and Vomiting Control Satisfactory: Yes Mental Status Recovered: Yes
[2016-08-23] MEDS: LORazepam 1 MG Tab PO PRN ×2 (14:20→22:43)
--- NOTE | 2016-08-23 17:54 | PCM.SURGPN ---
- General Info Date of Service: 08/23/16 POD#: 1 Functional Status: Reports: tolerating diet, ambulating, urinating, other (The pt has progressed slowly with therapies.) - Review of Systems General: Denies: Fever, Chills Musculoskeletal: Reports: other (The pt does not feel prepared for discharge to home today.) Psychiatric: Reports: anxiety - Patient Data Vitals - most recent: Last Vital Signs Temp 99.1 F 08/23/16 15:21 Pulse 85 08/23/16 15:21 Resp 18 08/23/16 15:21 BP 163/73 H 08/23/16 15:21 Pulse Ox 93 L 08/23/16 15:21 Weight - most recent: 258 lb 14.4 oz I&O - last 24 hours: Intake & Output 08/23/16 08/23/16 08/23/16 06:59 14:59 22:59 Output Total 275 1400 Balance -275 -1400 Lab Results last 24 hrs: Laboratory Results - last 24 hr 08/23/16 08/23/16 Range/Units 06:00 06:00 WBC 7.96 (3.98-10.04) K/mm3 RBC 3.91 L (3.98-5.22) M/mm3 Hgb 11.2 (11.2-15.7) gm/L Hct 34.4 (34.1-44.9) % MCV 88.0 (79.4-94.8) fl MCH 28.6 (25.6-32.2) pg MCHC 32.6 (32.2-35.5) g/dl RDW Std Deviation 48.7 H (36.4-46.3) fL Plt Count 236 (182-369) K/mm3 MPV 9.3 L (9.4-12.3) fl Neut % (Auto) 55.9 (34.0-71.1) % Lymph % (Auto) 20.9 (19.3-51.7) % [place] % (Auto) 15.8 H (4.7-12.5) % Eos % (Auto) 6.7 H (0.7-5.8) Baso % (Auto) 0.4 (0.1-1.2) % Neut # (Auto) 4.46 (1.56-6.13) K/mm3 Lymph # (Auto) 1.66 (1.18-3.74) K/mm3 [place] # (Auto) 1.26 H (0.24-0.36) K/mm3 Eos # (Auto) 0.53 H (0.04-0.36) K/mm3 Baso # (Auto) 0.03 (0.01-0.08) K/mm3 Manual Slide Review Normal smear Sodium 138 (136-145) mEq/L Potassium 3.9 (3.5-5.1) mEq/L Chloride 102 (98-107) mEq/L Carbon Dioxide 30 (21-32) mEq/L Anion Gap 9.9 (5-15) BUN 14 (7-18) mg/dL Creatinine 1.0 (0.55-1.02) mg/dL Est Cr Clr Drug Dosing 59.37 mL/min Estimated GFR (MDRD) > 60 (>60) mL/min BUN/Creatinine Ratio 14.0 (14-18) Glucose 111 H (74-106) mg/dL Calcium 8.3 L (8.5-10.1) mg/dL Total Bilirubin 0.3 (0.2-1.0) mg/dL AST 20 (15-37) U/L ALT 21 (14-59) U/L Alkaline Phosphatase 62 (46-116) U/L Total Protein 6.4 (6.4-8.2) g/dl Albumin 3.2 L (3.4-5.0) g/dl Globulin 3.2 gm/dL Albumin/Globulin Ratio 1.0 (1-2) Med Orders - Current: Current Medications Aspirin (Ecotrin) 325 mg PO BID ON LICENSE OF [facility] Last Admin: 08/23/16 09:48 Dose: 325 mg Bisacodyl (Dulcolax) 5 mg PO DAILY PRN PRN Reason: Constipation Bupropion HCl (Wellbutrin Xl) 450 mg PO BEDTIME ON LICENSE OF [facility] Last Admin: 08/22/16 21:13 Dose: 450 mg Citalopram Hydrobromide (Celexa) 40 mg PO BEDTIME ON LICENSE OF [facility] Last Admin: 08/22/16 21:16 Dose: 40 mg Cyclobenzaprine HCl (Flexeril) 10 mg PO TID PRN PRN Reason: Spasms Last Admin: 08/22/16 23:33 Dose: 10 mg Docusate Sodium (Colace) 100 mg PO BID ON LICENSE OF [facility] Last Admin: 08/23/16 09:48 Dose: 100 mg Furosemide (Lasix) 20 mg PO DAILY PRN PRN Reason: Other Levothyroxine Sodium (Levothyroxine) 112 mcg PO BEDTIME ON LICENSE OF [facility] Last Admin: 08/22/16 21:13 Dose: 112 mcg Lorazepam (Ativan) 1 mg PO Q8H PRN PRN Reason: Anxiety Last Admin: 08/23/16 14:20 Dose: 1 mg Magnesium Hydroxide (Milk Of Magnesia) 30 ml PO BID PRN PRN Reason: Constipation Morphine Sulfate (Morphine) 2 mg IVPUSH Q2H PRN PRN Reason: Breakthrough Pain Last Admin: 08/23/16 14:26 Dose: 2 mg Multivitamins (Thera) 1 each PO WITHBREAKFAST ON LICENSE OF [facility] Last Admin: 08/23/16 09:48 Dose: 1 each Ondansetron HCl (Zofran) 4 mg IVPUSH Q6H PRN PRN Reason: Nausea/Vomiting Last Admin: 08/23/16 08:48 Dose: 4 mg Pantoprazole Sodium (Protonix) 40 mg PO BEDTIME ON LICENSE OF [facility] Last Admin: 08/22/16 21:12 Dose: 40 mg Pregabalin (Lyrica) 150 mg PO BID PRN PRN Reason: Pain Last Admin: 08/23/16 10:07 Dose: 150 mg Senna (Senna) 8.6 mg PO BID PRN PRN Reason: Constipation Tapentadol (Nucynta) 50 - 100 mg PO Q4H PRN PRN Reason: Pain Last Admin: 08/23/16 15:11 Dose: 100 mg Verapamil HCl (Calan Sr) 240 mg PO BEDTIME ON LICENSE OF [facility] Last Admin: 08/22/16 21:14 Dose: 240 mg Zolpidem Tartrate (Ambien) 10 mg PO BEDTIME SADAF Discontinued Medications Bupivacaine HCl (Marcaine 0.25%) Confirm Administered Dose 30 ml .ROUTE .STK- MED ONE Stop: 08/22/16 08:43 Last Admin: 08/22/16 12:00 Dose: 30 ml Bupropion HCl (Wellbutrin Xl) 450 mg PO DAILY ON LICENSE OF [facility] Cefazolin Sodium (Ancef) Confirm Administered Dose 2 gm .ROUTE .STK-MED ONE Stop: 08/22/16 08:43 Cefazolin Sodium (Ancef) Confirm Administered Dose 2 gm .ROUTE .STK-MED ONE Stop: 08/22/16 09:32 Last Admin: 08/22/16 11:54 Dose: 2 gm Citalopram Hydrobromide (Celexa) 40 mg PO DAILY ON LICENSE OF [facility] Morphine Sulfate 8 mg/Epinephrine HCl 0.3 mg/Cefuroxime Sodium 750 mg/Ketorolac Tromethamine 30 mg/Sodium Chloride 27.9 ml 0 mg .XX ONETIME ONE Stop: 08/22/16 10:31 Last Admin: 08/22/16 19:48 Dose: Not Given Diphenhydramine HCl (Benadryl) 25 mg IVPUSH Q6H PRN PRN Reason: pruritis Stop: 08/22/16 13:30 Ephedrine Sulfate (Ephedrine Sulfate) 5 mg IVPUSH ASDIRECTED PRN PRN Reason: Hypotension Stop: 08/22/16 13:30 Famotidine (Pepcid) 20 mg PO BID ON LICENSE OF [facility] Last Admin: 08/22/16 21:12 Dose: 20 mg Fentanyl (Sublimaze) Confirm Administered Dose 100 mcg .ROUTE .STK-MED ONE Stop: 08/22/16 09:33 Fentanyl (Sublimaze) 50 mcg IVPUSH Q5M PRN PRN Reason: Pain Stop: 08/22/16 11:00 Hydromorphone HCl (Dilaudid) 0.5 mg IVPUSH Q15M PRN PRN Reason: severe pain Stop: 08/22/16 11:00 Hydromorphone HCl (Dilaudid) 0.5 mg IVPUSH ONETIME ONE Stop: 08/22/16 18:47 Last Admin: 08/22/16 18:56 Dose: 0.5 mg Hydromorphone HCl (Dilaudid) Confirm Administered Dose 0.5 mg .ROUTE .STK-MED ONE Stop: 08/22/16 19:20 Last Admin: 08/22/16 19:25 Dose: 0.5 mg Lactated Ringer's (Ringers, Lactated) 1,000 mls @ 125 mls/hr IV ASDIRECTED SADAF Lactated Ringer's (Ringers, Lactated) 1,000 mls @ 125 mls/hr IV ASDIRECTED SADAF Stop: 08/22/16 23:00 Last Admin: 08/22/16 09:15 Dose: 125 mls/hr Cefazolin Sodium/Dextrose 2 gm (/ Premix) 50 mls @ 100 mls/hr IV Q8H SADAF Stop: 08/23/16 10:29 Last Admin: 08/23/16 09:54 Dose: 100 mls/hr Lidocaine HCl (Xylocaine-Mpf 1%) Confirm Administered Dose 10 mls @ as directed .ROUTE .STK-MED ONE Stop: 08/22/16 09:32 Lactated Ringer's (Ringers, Lactated) Confirm Administered Dose 1,000 mls @ as directed .ROUTE .STK-MED ONE Stop: 08/22/16 09:32 Phenylephrine HCl 1 mg/ Sodium (Chloride) 10.1 mls @ 1 mls/sec IV TITRATE ON LICENSE OF [facility] Stop: 08/22/16 13:30 Lactated Ringer's (Ringers, Lactated) Confirm Administered Dose 1,000 mls @ as directed .ROUTE .STK-MED ONE Stop: 08/22/16 12:23 Iodine (Iodine 2% Mild Tincture) Confirm Administered Dose 30 ml .ROUTE .STK- MED ONE Stop: 08/22/16 08:43 Last Admin: 08/22/16 11:50 Dose: 18 ml Ketorolac Tromethamine (Toradol) 15 mg IVPUSH Q6H PRN PRN Reason: Pain Stop: 08/22/16 18:01 Last Admin: 08/22/16 14:35 Dose: 15 mg Ketorolac Tromethamine (Toradol) 15 mg IVPUSH Q6H PRN PRN Reason: Pain Stop: 08/22/16 20:56 Ketorolac Tromethamine (Toradol) 15 mg IVPUSH ONETIME ONE Stop: 08/22/16 23:23 Last Admin: 08/22/16 23:33 Dose: 15 mg Lidocaine/Sodium Bicarbonate (Buffered Lidocaine 1% In Ns 8.4%) 0.25 ml IV ONETIME PRN PRN Reason: Prior to IV Start Lidocaine/Sodium Bicarbonate (Buffered Lidocaine 1% In Ns 8.4%) 0.25 ml .XX ONETIME PRN PRN Reason: Prior to IV Start Stop: 08/22/16 15:00 Last Admin: 08/22/16 09:14 Dose: 0.25 ml Meperidine HCl (Demerol) 12.5 mg IVPUSH ONETIME PRN PRN Reason: shivering Stop: 08/23/16 10:45 Midazolam HCl (Versed 1 Mg/Ml) Confirm Administered Dose 2 mg .ROUTE .STK-MED ONE Stop: 08/22/16 09:33 Midazolam HCl (Versed 1 Mg/Ml) Confirm Administered Dose 2 mg .ROUTE .STK-MED ONE Stop: 08/22/16 10:01 Midazolam HCl (Versed 1 Mg/Ml) 2 mg IVPUSH ONETIME PRN PRN Reason: Sedation Stop: 08/22/16 13:30 Midazolam HCl (Versed 1 Mg/Ml) Confirm Administered Dose 2 mg .ROUTE .STK-MED ONE Stop: 08/22/16 11:01 Midazolam HCl (Versed 1 Mg/Ml) Confirm Administered Dose 2 mg .ROUTE .STK-MED ONE Stop: 08/22/16 12:23 Midazolam HCl (Versed 1 Mg/Ml) Confirm Administered Dose 2 mg .ROUTE .STK-MED ONE Stop: 08/22/16 12:30 Morphine Sulfate (Duramorph Pf) Confirm Administered Dose 10 mg .ROUTE .STK-MED ONE Stop: 08/22/16 09:29 Naloxone HCl (Narcan) 0.1 mg IVPUSH Q5M PRN PRN Reason: Oversedation Stop: 08/22/16 12:16 Ondansetron HCl (Zofran) 4 mg IVPUSH ONETIME PRN PRN Reason: Nausea/Vomiting Stop: 08/22/16 13:30 Pantoprazole Sodium (Protonix) 40 mg PO ACBREAKFAST SADAF Phenylephrine HCl (Phenylephrine In Ns 100 Mcg/Ml) Confirm Administered Dose 1 mg .ROUTE .STK-MED ONE Stop: 08/22/16 11:03 Propofol (Diprivan 20 Ml) Confirm Administered Dose 400 mg .ROUTE .STK-MED ONE Stop: 08/22/16 09:33 Propofol (Diprivan 20 Ml) Confirm Administered Dose 200 mg .ROUTE .STK-MED ONE Stop: 08/22/16 10:46 Propofol (Diprivan 20 Ml) Confirm Administered Dose 200 mg .ROUTE .STK-MED ONE Stop: 08/22/16 11:09 Propofol (Diprivan 20 Ml) Confirm Administered Dose 200 mg .ROUTE .STK-MED ONE Stop: 08/22/16 12:23 Scopolamine (Transderm-Scop) 1.5 mg TRDERM ONETIME ONE Stop: 08/22/16 09:31 Last Admin: 08/22/16 09:32 Dose: 1.5 mg Sodium Chloride (Saline Flush) 10 ml FLUSH ASDIRECTED PRN PRN Reason: Keep Vein Open Sodium Chloride (Saline Flush) 10 ml FLUSH ASDIRECTED PRN PRN Reason: Keep Vein Open Stop: 08/22/16 15:00 Tapentadol (Nucynta) 50 - 100 mg PO Q6H PRN PRN Reason: Pain Last Admin: 08/23/16 11:19 Dose: 100 mg Tranexamic Acid (Cyklokapron) Confirm Administered Dose 1,000 mg .ROUTE .STK- MED ONE Stop: 08/22/16 08:43 Last Admin: 08/22/16 12:06 Dose: 1,000 mg Verapamil HCl (Calan Sr) 240 mg PO DAILY SADAF - Exam Wound/Incisions: dressing dry and intact General: alert, cooperative, no acute distress Extremities: normal pulses, no calf tenderness, other (NVS intact for BLE. Ayad's negative.) - Problem List Review Problem List Initiated/Reviewed/Updated: Yes - My Orders Last 24 Hours: Active Orders 24 hr Category Date Time Status Regular Diet [DIET] Diet 08/22/16 Dinner Active Aspirin [Ecotrin] Med 08/23/16 09:00 Active 325 mg PO BID Citalopram [Celexa] Med 08/22/16 21:00 Active 40 mg PO BEDTIME Docusate Sodium [Colace] Med 08/22/16 21:00 Active 100 mg PO BID Furosemide [Lasix] Med 08/23/16 11:49 Active 20 mg PO DAILY PRN LORazepam [Ativan] Med 08/23/16 11:50 Active 1 mg PO Q8H PRN Levothyroxine Med 08/22/16 21:00 Active 112 mcg PO BEDTIME Multivitamins,Therapeutic [Thera] Med 08/23/16 07:00 Active 1 each PO WITHBREAKFAST Pantoprazole [ProTONIX] Med 08/22/16 21:00 Active 40 mg PO BEDTIME Pregabalin [Lyrica] Med 08/22/16 19:56 Active 150 mg PO BID PRN Tapentadol [Nucynta] Med 08/23/16 13:35 Active 50 - 100 mg PO Q4H PRN Verapamil [Calan SR] Med 08/22/16 21:00 Active 240 mg PO BEDTIME Zolpidem [Ambien] Med 08/23/16 21:00 Active 10 mg PO BEDTIME buPROPion [Wellbutrin XL] Med 08/22/16 21:00 Active 450 mg PO BEDTIME Medication Orders Aspirin (Ecotrin) 325 mg PO BID ON LICENSE OF [facility] Last Admin: 08/23/16 09:48 Dose: 325 mg Bisacodyl (Dulcolax) 5 mg PO DAILY PRN PRN Reason: Constipation Bupropion HCl (Wellbutrin Xl) 450 mg PO BEDTIME ON LICENSE OF [facility] Last Admin: 08/22/16 21:13 Dose: 450 mg Citalopram Hydrobromide (Celexa) 40 mg PO BEDTIME ON LICENSE OF [facility] Last Admin: 08/22/16 21:16 Dose: 40 mg Cyclobenzaprine HCl (Flexeril) 10 mg PO TID PRN PRN Reason: Spasms Last Admin: 08/22/16 23:33 Dose: 10 mg Admin: 08/22/16 15:41 Dose: 10 mg Docusate Sodium (Colace) 100 mg PO BID ON LICENSE OF [facility] Last Admin: 08/23/16 09:48 Dose: 100 mg Admin: 08/22/16 21:11 Dose: 100 mg Furosemide (Lasix) 20 mg PO DAILY PRN PRN Reason: Other Levothyroxine Sodium (Levothyroxine) 112 mcg PO BEDTIME ON LICENSE OF [facility] Last Admin: 08/22/16 21:13 Dose: 112 mcg Lorazepam (Ativan) 1 mg PO Q8H PRN PRN Reason: Anxiety Last Admin: 08/23/16 14:20 Dose: 1 mg Magnesium Hydroxide (Milk Of Magnesia) 30 ml PO BID PRN PRN Reason: Constipation Morphine Sulfate (Morphine) 2 mg IVPUSH Q2H PRN PRN Reason: Breakthrough Pain Last Admin: 08/23/16 14:26 Dose: 2 mg Admin: 08/23/16 10:00 Dose: 1 mg Admin: 08/23/16 01:28 Dose: 2 mg Admin: 08/22/16 17:08 Dose: 2 mg Admin: 08/22/16 15:10 Dose: 2 mg Multivitamins (Thera) 1 each PO WITHBREAKFAST ON LICENSE OF [facility] Last Admin: 08/23/16 09:48 Dose: 1 each Ondansetron HCl (Zofran) 4 mg IVPUSH Q6H PRN PRN Reason: Nausea/Vomiting Last Admin: 08/23/16 08:48 Dose: 4 mg Pantoprazole Sodium (Protonix) 40 mg PO BEDTIME SADAF Last Admin: 08/22/16 21:12 Dose: 40 mg Pregabalin (Lyrica) 150 mg PO BID PRN PRN Reason: Pain Last Admin: 08/23/16 10:07 Dose: 150 mg Admin: 08/22/16 21:11 Dose: 150 mg Senna (Senna) 8.6 mg PO BID PRN PRN Reason: Constipation Tapentadol (Nucynta) 50 - 100 mg PO Q4H PRN PRN Reason: Pain Last Admin: 08/23/16 15:11 Dose: 100 mg Verapamil HCl (Calan Sr) 240 mg PO BEDTIME ON LICENSE OF [facility] Last Admin: 08/22/16 21:14 Dose: 240 mg Zolpidem Tartrate (Ambien) 10 mg PO BEDTIME SADAF - Assessment Assessment (Free Text/Narrative):: POD#1 - right TKA - Plan Plan (Free Text/Narrative):: 1. 325mg ASA BID. TEDs, SCDs, frequent mobility. 2. Will increase Nucynta to q 4 hours. 3. Suspect discharge to home tomorrow. 4. The pt will remain in Hospital this evening for continued therapy and monitoring. 5. Hgb 11.2 today. The pt's case was discussed with Dr. rGiffin.
[2016-08-23] MEDS: Cyclobenzaprine 10 MG Tab PO PRN ×2 (18:41→22:48)
[2016-08-23] MEDS ORDERED: Zolpidem 10 MG Tab PO SCH (21:00)
[2016-08-23] MEDS: Pantoprazole 40 MG Tab.CR PO SCH (22:44)
[2016-08-23] MEDS: Citalopram 20 MG Tab PO SCH (22:46)
[2016-08-23] MEDS: buPROPion 150 MG Tab.ER PO SCH (22:46)
[2016-08-23] MEDS: Verapamil 120 MG Tab.ER PO SCH (22:47)
[2016-08-23] MEDS: Levothyroxine 112 MCG Tab PO SCH (22:49)
[2016-08-24] MEDS: LORazepam 1 MG Tab PO PRN (05:44)
--- NOTE | 2016-08-24 07:25 | PCM.CONSN ---
- General Info Date of Service: 08/24/16 Admission Dx/Problem (Free Text): POD #2 Rt TKA Pain continues to be an issue but is improved today. No further nausea. Slept well last night. States is using IS. Plans for dc home today. Rounded with Janny Moreira PA-C with Ortho this morning. Functional Status: Reports: pain controlled, tolerating diet, ambulating, urinating. Denies: new symptoms - Review of Systems General: Reports: No Symptoms HEENT: Reports: no symptoms Pulmonary: Reports: no symptoms Cardiovascular: Reports: No Symptoms Gastrointestinal: Reports: No symptoms Genitourinary: Reports: no symptoms Musculoskeletal: Reports: leg pain Skin: Reports: no symptoms Neurological: Reports: No Symptoms Psychiatric: Reports: no symptoms - Patient Data Vitals - most recent: Last Vital Signs Temp 99.3 F 08/24/16 00:03 Pulse 94 08/24/16 00:03 Resp 19 08/24/16 00:03 BP 140/67 08/24/16 00:03 Pulse Ox 92 L 08/24/16 00:03 Weight - most recent: 250 lb 6.4 oz I&O - last 24 hours: Intake & Output 08/23/16 08/24/16 08/24/16 22:59 06:59 14:59 Intake Total 600 800 Output Total 350 Balance 250 800 Lab Results last 24 hrs: Laboratory Results - last 24 hr 08/23/16 08/23/16 Range/Units 06:00 06:00 WBC 7.96 (3.98-10.04) K/mm3 RBC 3.91 L (3.98-5.22) M/mm3 Hgb 11.2 (11.2-15.7) gm/L Hct 34.4 (34.1-44.9) % MCV 88.0 (79.4-94.8) fl MCH 28.6 (25.6-32.2) pg MCHC 32.6 (32.2-35.5) g/dl RDW Std Deviation 48.7 H (36.4-46.3) fL Plt Count 236 (182-369) K/mm3 MPV 9.3 L (9.4-12.3) fl Neut % (Auto) 55.9 (34.0-71.1) % Lymph % (Auto) 20.9 (19.3-51.7) % [place] % (Auto) 15.8 H (4.7-12.5) % Eos % (Auto) 6.7 H (0.7-5.8) Baso % (Auto) 0.4 (0.1-1.2) % Neut # (Auto) 4.46 (1.56-6.13) K/mm3 Lymph # (Auto) 1.66 (1.18-3.74) K/mm3 [place] # (Auto) 1.26 H (0.24-0.36) K/mm3 Eos # (Auto) 0.53 H (0.04-0.36) K/mm3 Baso # (Auto) 0.03 (0.01-0.08) K/mm3 Manual Slide Review Normal smear Sodium 138 (136-145) mEq/L Potassium 3.9 (3.5-5.1) mEq/L Chloride 102 (98-107) mEq/L Carbon Dioxide 30 (21-32) mEq/L Anion Gap 9.9 (5-15) BUN 14 (7-18) mg/dL Creatinine 1.0 (0.55-1.02) mg/dL Est Cr Clr Drug Dosing 59.37 mL/min Estimated GFR (MDRD) > 60 (>60) mL/min BUN/Creatinine Ratio 14.0 (14-18) Glucose 111 H (74-106) mg/dL Calcium 8.3 L (8.5-10.1) mg/dL Total Bilirubin 0.3 (0.2-1.0) mg/dL AST 20 (15-37) U/L ALT 21 (14-59) U/L Alkaline Phosphatase 62 (46-116) U/L Total Protein 6.4 (6.4-8.2) g/dl Albumin 3.2 L (3.4-5.0) g/dl Globulin 3.2 gm/dL Albumin/Globulin Ratio 1.0 (1-2) Med Orders - Current: Current Medications Aspirin (Ecotrin) 325 mg PO BID [facility] Last Admin: 08/23/16 22:48 Dose: 325 mg Bisacodyl (Dulcolax) 5 mg PO DAILY PRN PRN Reason: Constipation Bupropion HCl (Wellbutrin Xl) 450 mg PO BEDTIME [facility] Last Admin: 08/23/16 22:46 Dose: 450 mg Citalopram Hydrobromide (Celexa) 40 mg PO BEDTIME [facility] Last Admin: 08/23/16 22:46 Dose: 40 mg Cyclobenzaprine HCl (Flexeril) 10 mg PO TID PRN PRN Reason: Spasms Last Admin: 08/23/16 22:48 Dose: 10 mg Docusate Sodium (Colace) 100 mg PO BID [facility] Last Admin: 08/23/16 22:48 Dose: 100 mg Furosemide (Lasix) 20 mg PO DAILY PRN PRN Reason: Other Levothyroxine Sodium (Levothyroxine) 112 mcg PO BEDTIME [facility] Last Admin: 08/23/16 22:49 Dose: 112 mcg Lorazepam (Ativan) 1 mg PO Q8H PRN PRN Reason: Anxiety Last Admin: 08/24/16 05:44 Dose: 1 mg Magnesium Hydroxide (Milk Of Magnesia) 30 ml PO BID PRN PRN Reason: Constipation Morphine Sulfate (Morphine) 2 mg IVPUSH Q2H PRN PRN Reason: Breakthrough Pain Last Admin: 08/23/16 19:53 Dose: 2 mg Multivitamins (Thera) 1 each PO WITHBREAKFAST [facility] Last Admin: 08/23/16 09:48 Dose: 1 each Ondansetron HCl (Zofran) 4 mg IVPUSH Q6H PRN PRN Reason: Nausea/Vomiting Last Admin: 08/23/16 08:48 Dose: 4 mg Pantoprazole Sodium (Protonix) 40 mg PO BEDTIME [facility] Last Admin: 08/23/16 22:44 Dose: 40 mg Pregabalin (Lyrica) 150 mg PO BID PRN PRN Reason: Pain Last Admin: 08/23/16 10:07 Dose: 150 mg Senna (Senna) 8.6 mg PO BID PRN PRN Reason: Constipation Last Admin: 08/23/16 22:45 Dose: 8.6 mg Tapentadol (Nucynta) 50 - 100 mg PO Q4H PRN PRN Reason: Pain Last Admin: 08/24/16 04:40 Dose: 100 mg Verapamil HCl (Calan Sr) 240 mg PO BEDTIME [facility] Last Admin: 08/23/16 22:47 Dose: 240 mg Zolpidem Tartrate (Ambien) 10 mg PO BEDTIME [facility] Last Admin: 08/23/16 22:44 Dose: 10 mg Discontinued Medications Bupivacaine HCl (Marcaine 0.25%) Confirm Administered Dose 30 ml .ROUTE .STK- MED ONE Stop: 08/22/16 08:43 Last Admin: 08/22/16 12:00 Dose: 30 ml Bupropion HCl (Wellbutrin Xl) 450 mg PO DAILY [facility] Cefazolin Sodium (Ancef) Confirm Administered Dose 2 gm .ROUTE .STK-MED ONE Stop: 08/22/16 08:43 Cefazolin Sodium (Ancef) Confirm Administered Dose 2 gm .ROUTE .STK-MED ONE Stop: 08/22/16 09:32 Last Admin: 08/22/16 11:54 Dose: 2 gm Citalopram Hydrobromide (Celexa) 40 mg PO DAILY [facility] Morphine Sulfate 8 mg/Epinephrine HCl 0.3 mg/Cefuroxime Sodium 750 mg/Ketorolac Tromethamine 30 mg/Sodium Chloride 27.9 ml 0 mg .XX ONETIME ONE Stop: 08/22/16 10:31 Last Admin: 08/22/16 19:48 Dose: Not Given Diphenhydramine HCl (Benadryl) 25 mg IVPUSH Q6H PRN PRN Reason: pruritis Stop: 08/22/16 13:30 Ephedrine Sulfate (Ephedrine Sulfate) 5 mg IVPUSH ASDIRECTED PRN PRN Reason: Hypotension Stop: 08/22/16 13:30 Famotidine (Pepcid) 20 mg PO BID [facility] Last Admin: 08/22/16 21:12 Dose: 20 mg Fentanyl (Sublimaze) Confirm Administered Dose 100 mcg .ROUTE .STK-MED ONE Stop: 08/22/16 09:33 Fentanyl (Sublimaze) 50 mcg IVPUSH Q5M PRN PRN Reason: Pain Stop: 08/22/16 11:00 Hydromorphone HCl (Dilaudid) 0.5 mg IVPUSH Q15M PRN PRN Reason: severe pain Stop: 08/22/16 11:00 Hydromorphone HCl (Dilaudid) 0.5 mg IVPUSH ONETIME ONE Stop: 08/22/16 18:47 Last Admin: 08/22/16 18:56 Dose: 0.5 mg Hydromorphone HCl (Dilaudid) Confirm Administered Dose 0.5 mg .ROUTE .STK-MED ONE Stop: 08/22/16 19:20 Last Admin: 08/22/16 19:25 Dose: 0.5 mg Lactated Ringer's (Ringers, Lactated) 1,000 mls @ 125 mls/hr IV ASDIRECTED [facility] Lactated Ringer's (Ringers, Lactated) 1,000 mls @ 125 mls/hr IV ASDIRECTED [facility] Stop: 08/22/16 23:00 Last Admin: 08/22/16 09:15 Dose: 125 mls/hr Cefazolin Sodium/Dextrose 2 gm (/ Premix) 50 mls @ 100 mls/hr IV Q8H [facility] Stop: 08/23/16 10:29 Last Admin: 08/23/16 09:54 Dose: 100 mls/hr Lidocaine HCl (Xylocaine-Mpf 1%) Confirm Administered Dose 10 mls @ as directed .ROUTE .STK-MED ONE Stop: 08/22/16 09:32 Lactated Ringer's (Ringers, Lactated) Confirm Administered Dose 1,000 mls @ as directed .ROUTE .STK-MED ONE Stop: 08/22/16 09:32 Phenylephrine HCl 1 mg/ Sodium (Chloride) 10.1 mls @ 1 mls/sec IV TITRATE [facility] Stop: 08/22/16 13:30 Lactated Ringer's (Ringers, Lactated) Confirm Administered Dose 1,000 mls @ as directed .ROUTE .STK-MED ONE Stop: 08/22/16 12:23 Iodine (Iodine 2% Mild Tincture) Confirm Administered Dose 30 ml .ROUTE .STK- MED ONE Stop: 08/22/16 08:43 Last Admin: 08/22/16 11:50 Dose: 18 ml Ketorolac Tromethamine (Toradol) 15 mg IVPUSH Q6H PRN PRN Reason: Pain Stop: 08/22/16 18:01 Last Admin: 08/22/16 14:35 Dose: 15 mg Ketorolac Tromethamine (Toradol) 15 mg IVPUSH Q6H PRN PRN Reason: Pain Stop: 08/22/16 20:56 Ketorolac Tromethamine (Toradol) 15 mg IVPUSH ONETIME ONE Stop: 08/22/16 23:23 Last Admin: 08/22/16 23:33 Dose: 15 mg Lidocaine/Sodium Bicarbonate (Buffered Lidocaine 1% In Ns 8.4%) 0.25 ml IV ONETIME PRN PRN Reason: Prior to IV Start Lidocaine/Sodium Bicarbonate (Buffered Lidocaine 1% In Ns 8.4%) 0.25 ml .XX ONETIME PRN PRN Reason: Prior to IV Start Stop: 08/22/16 15:00 Last Admin: 08/22/16 09:14 Dose: 0.25 ml Meperidine HCl (Demerol) 12.5 mg IVPUSH ONETIME PRN PRN Reason: shivering Stop: 08/23/16 10:45 Midazolam HCl (Versed 1 Mg/Ml) Confirm Administered Dose 2 mg .ROUTE .STK-MED ONE Stop: 08/22/16 09:33 Midazolam HCl (Versed 1 Mg/Ml) Confirm Administered Dose 2 mg .ROUTE .STK-MED ONE Stop: 08/22/16 10:01 Midazolam HCl (Versed 1 Mg/Ml) 2 mg IVPUSH ONETIME PRN PRN Reason: Sedation Stop: 08/22/16 13:30 Midazolam HCl (Versed 1 Mg/Ml) Confirm Administered Dose 2 mg .ROUTE .STK-MED ONE Stop: 08/22/16 11:01 Midazolam HCl (Versed 1 Mg/Ml) Confirm Administered Dose 2 mg .ROUTE .STK-MED ONE Stop: 08/22/16 12:23 Midazolam HCl (Versed 1 Mg/Ml) Confirm Administered Dose 2 mg .ROUTE .STK-MED ONE Stop: 08/22/16 12:30 Morphine Sulfate (Duramorph Pf) Confirm Administered Dose 10 mg .ROUTE .STK-MED ONE Stop: 08/22/16 09:29 Naloxone HCl (Narcan) 0.1 mg IVPUSH Q5M PRN PRN Reason: Oversedation Stop: 08/22/16 12:16 Ondansetron HCl (Zofran) 4 mg IVPUSH ONETIME PRN PRN Reason: Nausea/Vomiting Stop: 08/22/16 13:30 Pantoprazole Sodium (Protonix) 40 mg PO ACBREAKFAST [facility] Phenylephrine HCl (Phenylephrine In Ns 100 Mcg/Ml) Confirm Administered Dose 1 mg .ROUTE .STK-MED ONE Stop: 08/22/16 11:03 Propofol (Diprivan 20 Ml) Confirm Administered Dose 400 mg .ROUTE .STK-MED ONE Stop: 08/22/16 09:33 Propofol (Diprivan 20 Ml) Confirm Administered Dose 200 mg .ROUTE .STK-MED ONE Stop: 08/22/16 10:46 Propofol (Diprivan 20 Ml) Confirm Administered Dose 200 mg .ROUTE .STK-MED ONE Stop: 08/22/16 11:09 Propofol (Diprivan 20 Ml) Confirm Administered Dose 200 mg .ROUTE .STK-MED ONE Stop: 08/22/16 12:23 Scopolamine (Transderm-Scop) 1.5 mg TRDERM ONETIME ONE Stop: 08/22/16 09:31 Last Admin: 08/22/16 09:32 Dose: 1.5 mg Sodium Chloride (Saline Flush) 10 ml FLUSH ASDIRECTED PRN PRN Reason: Keep Vein Open Sodium Chloride (Saline Flush) 10 ml FLUSH ASDIRECTED PRN PRN Reason: Keep Vein Open Stop: 08/22/16 15:00 Tapentadol (Nucynta) 50 - 100 mg PO Q6H PRN PRN Reason: Pain Last Admin: 08/23/16 11:19 Dose: 100 mg Tranexamic Acid (Cyklokapron) Confirm Administered Dose 1,000 mg .ROUTE .STK- MED ONE Stop: 08/22/16 08:43 Last Admin: 08/22/16 12:06 Dose: 1,000 mg Verapamil HCl (Calan Sr) 240 mg PO DAILY [facility] - Exam Quality Assessment: DVT prophylaxis General: alert, oriented, cooperative, no acute distress HEENT: Pupils equal, Pupils reactive, EOMI, Mucous membr. moist/pink Neck: supple Lungs: Clear to auscultation, Normal respiratory effort Cardiovascular: Regular Rate, Regular Rhythm Abdomen: bowel sounds present, soft, no tenderness, no distension (Female) Exam: Deferred Extremities: other (teds bilat) Wound/Incisions: dressing dry and intact Neurological: no new focal deficit Psy/Mental Status: alert, normal affect, normal mood Consult PN Assessment/Plan POD#: 2 Procedures: Procedures COMPLETE CBC W/AUTO DIFF WBC (04/23/15) COMPREHEN METABOLIC PANEL (04/23/15) CULTURE AEROBIC IDENTIFY (10/28/13) ELECTROCARDIOGRAM TRACING (04/23/15) EMERGENCY DEPT VISIT (04/23/15) EMERGENCY DEPT VISIT (03/07/15) EMERGENCY DEPT VISIT (11/08/14) MASSAGE THERAPY (06/18/13) MICROBE SUSCEPTIBLE MARIMAR (10/28/13) MRI JNT OF LWR EXTRE W/O DYE (08/05/15) N BLOCK INJ TRIGEMINAL (03/07/15) ROUTINE VENIPUNCTURE (04/23/15) THER/PROPH/DIAG INJ SC/IM (11/08/14) THERAPEUTIC EXERCISES (06/18/13) URINALYSIS AUTO W/SCOPE (04/23/15) URINE BACTERIA CULTURE (10/28/13) US URINE CAPACITY MEASURE (04/23/15) (1) S/P total knee arthroplasty SNOMED Code(s): 3525712159950, [id number], 0233447447241 Code(s): Z96.659 - PRESENCE OF UNSPECIFIED ARTIFICIAL KNEE JOINT Priority: High Current Visit: Yes Qualifiers: Laterality: right Qualified Code(s): Z96.651 - Presence of right artificial knee joint (2) Osteoarthritis SNOMED Code(s): 204511412 Code(s): M19.90 - UNSPECIFIED OSTEOARTHRITIS, UNSPECIFIED SITE Priority: High Current Visit: Yes Qualifiers: Osteoarthritis location: knee Osteoarthritis type: primary Laterality: right Qualified Code(s): M17.11 - Unilateral primary osteoarthritis, right knee (3) Morbid obesity with BMI of 40.0-44.9, adult SNOMED Code(s): 464545989 Code(s): E66.01 - MORBID (SEVERE) OBESITY DUE TO EXCESS CALORIES; Z68.41 - BODY MASS INDEX (BMI) 40.0-44.9, ADULT Priority: Medium Current Visit: Yes (4) Hypertensive heart disease SNOMED Code(s): 15669112 Code(s): I11.9 - HYPERTENSIVE HEART DISEASE WITHOUT HEART FAILURE Priority : Medium Current Visit: No Qualifiers: Heart failure presence: without heart failure Qualified Code(s): I11.9 - Hypertensive heart disease without heart failure (5) Anxiety SNOMED Code(s): 13174383 Code(s): F41.9 - ANXIETY DISORDER, UNSPECIFIED Priority: Medium Current Visit: No Problem List Initiated/Reviewed/Updated: Yes My Orders last 24 hours: My Active Orders 08/23/16 11:49 Furosemide [Lasix] 20 mg PO DAILY PRN 08/23/16 11:50 LORazepam [Ativan] 1 mg PO Q8H PRN 08/23/16 21:00 Zolpidem [Ambien] 10 mg PO BEDTIME 08/24/16 07:12 BASIC METABOLIC PANEL,BMP [CHEM] Routine CBC WITH AUTO DIFF [HEME] Routine Plan: POD #2, Rt TKA with Dr. Griffin -Pain management and DVT prophylax per primary team -PT/OT -RT/IS -VSS Chronic: HTN- good control Obesity Anxiety Other: CM/SW for assist with DC planning Patient medically stable- ok for discharge home today. F/up with Ortho as scheduled post discharge. Patient is Full Code status.
--- NOTE | 2016-08-24 07:47 | PCM.SURGPN ---
- General Info Date of Service: 08/24/16 POD#: 2 Functional Status: Reports: pain controlled, tolerating diet, ambulating, urinating. Denies: new symptoms - Review of Systems General: Denies: Fever, Chills Musculoskeletal: Reports: other (The pt reports her pain is under better control today. ) - Patient Data Vitals - most recent: Last Vital Signs Temp 99.3 F 08/24/16 00:03 Pulse 94 08/24/16 00:03 Resp 19 08/24/16 00:03 BP 140/67 08/24/16 00:03 Pulse Ox 92 L 08/24/16 00:03 Weight - most recent: 250 lb 6.4 oz I&O - last 24 hours: Intake & Output 08/23/16 08/24/16 08/24/16 22:59 06:59 14:59 Intake Total 600 800 Output Total 350 Balance 250 800 Lab Results last 24 hrs: Laboratory Results - last 24 hr 08/23/16 08/24/16 Range/Units 06:00 07:27 WBC 7.96 9.74 (3.98-10.04) K/mm3 RBC 3.91 L 3.73 L (3.98-5.22) M/mm3 Hgb 11.2 10.8 L (11.2-15.7) gm/L Hct 34.4 32.8 L (34.1-44.9) % MCV 88.0 87.9 (79.4-94.8) fl MCH 28.6 29.0 (25.6-32.2) pg MCHC 32.6 32.9 (32.2-35.5) g/dl RDW Std Deviation 48.7 H 47.6 H (36.4-46.3) fL Plt Count 236 242 (182-369) K/mm3 MPV 9.3 L 8.8 L (9.4-12.3) fl Neut % (Auto) 55.9 68.0 (34.0-71.1) % Lymph % (Auto) 20.9 14.6 L (19.3-51.7) % Ramsey % (Auto) 15.8 H 16.3 H (4.7-12.5) % Eos % (Auto) 6.7 H 0.6 L (0.7-5.8) Baso % (Auto) 0.4 0.1 (0.1-1.2) % Neut # (Auto) 4.46 6.62 H (1.56-6.13) K/mm3 Lymph # (Auto) 1.66 1.42 (1.18-3.74) K/mm3 Ramsey # (Auto) 1.26 H 1.59 H (0.24-0.36) K/mm3 Eos # (Auto) 0.53 H 0.06 (0.04-0.36) K/mm3 Baso # (Auto) 0.03 0.01 (0.01-0.08) K/mm3 Manual Slide Review Normal smear Med Orders - Current: Current Medications Aspirin (Ecotrin) 325 mg PO BID [facility] Last Admin: 08/23/16 22:48 Dose: 325 mg Bisacodyl (Dulcolax) 5 mg PO DAILY PRN PRN Reason: Constipation Bupropion HCl (Wellbutrin Xl) 450 mg PO BEDTIME [facility] Last Admin: 08/23/16 22:46 Dose: 450 mg Citalopram Hydrobromide (Celexa) 40 mg PO BEDTIME [facility] Last Admin: 08/23/16 22:46 Dose: 40 mg Cyclobenzaprine HCl (Flexeril) 10 mg PO TID PRN PRN Reason: Spasms Last Admin: 08/23/16 22:48 Dose: 10 mg Docusate Sodium (Colace) 100 mg PO BID [facility] Last Admin: 08/23/16 22:48 Dose: 100 mg Furosemide (Lasix) 20 mg PO DAILY PRN PRN Reason: Other Levothyroxine Sodium (Levothyroxine) 112 mcg PO BEDTIME [facility] Last Admin: 08/23/16 22:49 Dose: 112 mcg Lorazepam (Ativan) 1 mg PO Q8H PRN PRN Reason: Anxiety Last Admin: 08/24/16 05:44 Dose: 1 mg Magnesium Hydroxide (Milk Of Magnesia) 30 ml PO BID PRN PRN Reason: Constipation Morphine Sulfate (Morphine) 2 mg IVPUSH Q2H PRN PRN Reason: Breakthrough Pain Last Admin: 08/23/16 19:53 Dose: 2 mg Multivitamins (Thera) 1 each PO WITHBREAKFAST [facility] Last Admin: 08/23/16 09:48 Dose: 1 each Ondansetron HCl (Zofran) 4 mg IVPUSH Q6H PRN PRN Reason: Nausea/Vomiting Last Admin: 08/23/16 08:48 Dose: 4 mg Pantoprazole Sodium (Protonix) 40 mg PO BEDTIME [facility] Last Admin: 08/23/16 22:44 Dose: 40 mg Pregabalin (Lyrica) 150 mg PO BID PRN PRN Reason: Pain Last Admin: 08/23/16 10:07 Dose: 150 mg Senna (Senna) 8.6 mg PO BID PRN PRN Reason: Constipation Last Admin: 08/23/16 22:45 Dose: 8.6 mg Tapentadol (Nucynta) 50 - 100 mg PO Q4H PRN PRN Reason: Pain Last Admin: 08/24/16 04:40 Dose: 100 mg Verapamil HCl (Calan Sr) 240 mg PO BEDTIME [facility] Last Admin: 08/23/16 22:47 Dose: 240 mg Zolpidem Tartrate (Ambien) 10 mg PO BEDTIME [facility] Last Admin: 08/23/16 22:44 Dose: 10 mg Discontinued Medications Bupivacaine HCl (Marcaine 0.25%) Confirm Administered Dose 30 ml .ROUTE .STK- MED ONE Stop: 08/22/16 08:43 Last Admin: 08/22/16 12:00 Dose: 30 ml Bupropion HCl (Wellbutrin Xl) 450 mg PO DAILY [facility] Cefazolin Sodium (Ancef) Confirm Administered Dose 2 gm .ROUTE .STK-MED ONE Stop: 08/22/16 08:43 Cefazolin Sodium (Ancef) Confirm Administered Dose 2 gm .ROUTE .STK-MED ONE Stop: 08/22/16 09:32 Last Admin: 08/22/16 11:54 Dose: 2 gm Citalopram Hydrobromide (Celexa) 40 mg PO DAILY [facility] Morphine Sulfate 8 mg/Epinephrine HCl 0.3 mg/Cefuroxime Sodium 750 mg/Ketorolac Tromethamine 30 mg/Sodium Chloride 27.9 ml 0 mg .XX ONETIME ONE Stop: 08/22/16 10:31 Last Admin: 08/22/16 19:48 Dose: Not Given Diphenhydramine HCl (Benadryl) 25 mg IVPUSH Q6H PRN PRN Reason: pruritis Stop: 08/22/16 13:30 Ephedrine Sulfate (Ephedrine Sulfate) 5 mg IVPUSH ASDIRECTED PRN PRN Reason: Hypotension Stop: 08/22/16 13:30 Famotidine (Pepcid) 20 mg PO BID [facility] Last Admin: 08/22/16 21:12 Dose: 20 mg Fentanyl (Sublimaze) Confirm Administered Dose 100 mcg .ROUTE .STK-MED ONE Stop: 08/22/16 09:33 Fentanyl (Sublimaze) 50 mcg IVPUSH Q5M PRN PRN Reason: Pain Stop: 08/22/16 11:00 Hydromorphone HCl (Dilaudid) 0.5 mg IVPUSH Q15M PRN PRN Reason: severe pain Stop: 08/22/16 11:00 Hydromorphone HCl (Dilaudid) 0.5 mg IVPUSH ONETIME ONE Stop: 08/22/16 18:47 Last Admin: 08/22/16 18:56 Dose: 0.5 mg Hydromorphone HCl (Dilaudid) Confirm Administered Dose 0.5 mg .ROUTE .STK-MED ONE Stop: 08/22/16 19:20 Last Admin: 08/22/16 19:25 Dose: 0.5 mg Lactated Ringer's (Ringers, Lactated) 1,000 mls @ 125 mls/hr IV ASDIRECTED [facility] Lactated Ringer's (Ringers, Lactated) 1,000 mls @ 125 mls/hr IV ASDIRECTED [facility] Stop: 08/22/16 23:00 Last Admin: 08/22/16 09:15 Dose: 125 mls/hr Cefazolin Sodium/Dextrose 2 gm (/ Premix) 50 mls @ 100 mls/hr IV Q8H [facility] Stop: 08/23/16 10:29 Last Admin: 08/23/16 09:54 Dose: 100 mls/hr Lidocaine HCl (Xylocaine-Mpf 1%) Confirm Administered Dose 10 mls @ as directed .ROUTE .STK-MED ONE Stop: 08/22/16 09:32 Lactated Ringer's (Ringers, Lactated) Confirm Administered Dose 1,000 mls @ as directed .ROUTE .STK-MED ONE Stop: 08/22/16 09:32 Phenylephrine HCl 1 mg/ Sodium (Chloride) 10.1 mls @ 1 mls/sec IV TITRATE [facility] Stop: 08/22/16 13:30 Lactated Ringer's (Ringers, Lactated) Confirm Administered Dose 1,000 mls @ as directed .ROUTE .STK-MED ONE Stop: 08/22/16 12:23 Iodine (Iodine 2% Mild Tincture) Confirm Administered Dose 30 ml .ROUTE .STK- MED ONE Stop: 08/22/16 08:43 Last Admin: 08/22/16 11:50 Dose: 18 ml Ketorolac Tromethamine (Toradol) 15 mg IVPUSH Q6H PRN PRN Reason: Pain Stop: 08/22/16 18:01 Last Admin: 08/22/16 14:35 Dose: 15 mg Ketorolac Tromethamine (Toradol) 15 mg IVPUSH Q6H PRN PRN Reason: Pain Stop: 08/22/16 20:56 Ketorolac Tromethamine (Toradol) 15 mg IVPUSH ONETIME ONE Stop: 08/22/16 23:23 Last Admin: 08/22/16 23:33 Dose: 15 mg Lidocaine/Sodium Bicarbonate (Buffered Lidocaine 1% In Ns 8.4%) 0.25 ml IV ONETIME PRN PRN Reason: Prior to IV Start Lidocaine/Sodium Bicarbonate (Buffered Lidocaine 1% In Ns 8.4%) 0.25 ml .XX ONETIME PRN PRN Reason: Prior to IV Start Stop: 08/22/16 15:00 Last Admin: 08/22/16 09:14 Dose: 0.25 ml Meperidine HCl (Demerol) 12.5 mg IVPUSH ONETIME PRN PRN Reason: shivering Stop: 08/23/16 10:45 Midazolam HCl (Versed 1 Mg/Ml) Confirm Administered Dose 2 mg .ROUTE .STK-MED ONE Stop: 08/22/16 09:33 Midazolam HCl (Versed 1 Mg/Ml) Confirm Administered Dose 2 mg .ROUTE .STK-MED ONE Stop: 08/22/16 10:01 Midazolam HCl (Versed 1 Mg/Ml) 2 mg IVPUSH ONETIME PRN PRN Reason: Sedation Stop: 08/22/16 13:30 Midazolam HCl (Versed 1 Mg/Ml) Confirm Administered Dose 2 mg .ROUTE .STK-MED ONE Stop: 08/22/16 11:01 Midazolam HCl (Versed 1 Mg/Ml) Confirm Administered Dose 2 mg .ROUTE .STK-MED ONE Stop: 08/22/16 12:23 Midazolam HCl (Versed 1 Mg/Ml) Confirm Administered Dose 2 mg .ROUTE .STK-MED ONE Stop: 08/22/16 12:30 Morphine Sulfate (Duramorph Pf) Confirm Administered Dose 10 mg .ROUTE .STK-MED ONE Stop: 08/22/16 09:29 Naloxone HCl (Narcan) 0.1 mg IVPUSH Q5M PRN PRN Reason: Oversedation Stop: 08/22/16 12:16 Ondansetron HCl (Zofran) 4 mg IVPUSH ONETIME PRN PRN Reason: Nausea/Vomiting Stop: 08/22/16 13:30 Pantoprazole Sodium (Protonix) 40 mg PO ACBREAKFAST [facility] Phenylephrine HCl (Phenylephrine In Ns 100 Mcg/Ml) Confirm Administered Dose 1 mg .ROUTE .STK-MED ONE Stop: 08/22/16 11:03 Propofol (Diprivan 20 Ml) Confirm Administered Dose 400 mg .ROUTE .STK-MED ONE Stop: 08/22/16 09:33 Propofol (Diprivan 20 Ml) Confirm Administered Dose 200 mg .ROUTE .STK-MED ONE Stop: 08/22/16 10:46 Propofol (Diprivan 20 Ml) Confirm Administered Dose 200 mg .ROUTE .STK-MED ONE Stop: 08/22/16 11:09 Propofol (Diprivan 20 Ml) Confirm Administered Dose 200 mg .ROUTE .STK-MED ONE Stop: 08/22/16 12:23 Scopolamine (Transderm-Scop) 1.5 mg TRDERM ONETIME ONE Stop: 08/22/16 09:31 Last Admin: 08/22/16 09:32 Dose: 1.5 mg Sodium Chloride (Saline Flush) 10 ml FLUSH ASDIRECTED PRN PRN Reason: Keep Vein Open Sodium Chloride (Saline Flush) 10 ml FLUSH ASDIRECTED PRN PRN Reason: Keep Vein Open Stop: 08/22/16 15:00 Tapentadol (Nucynta) 50 - 100 mg PO Q6H PRN PRN Reason: Pain Last Admin: 08/23/16 11:19 Dose: 100 mg Tranexamic Acid (Cyklokapron) Confirm Administered Dose 1,000 mg .ROUTE .STK- MED ONE Stop: 08/22/16 08:43 Last Admin: 08/22/16 12:06 Dose: 1,000 mg Verapamil HCl (Calan Sr) 240 mg PO DAILY [facility] - Exam Wound/Incisions: dressing dry and intact General: alert, cooperative, no acute distress Lungs: Normal respiratory effort Extremities: normal pulses, no calf tenderness, other (NVS intact for RLE. Ayad's negative RLE. Assistance with SLR required. Near full extension right knee.) - Problem List Review Problem List Initiated/Reviewed/Updated: Yes - My Orders Last 24 Hours: Active Orders 24 hr Category Date Time Status BASIC METABOLIC PANEL,BMP [CHEM] Routine Lab 08/24/16 07:27 Received CBC WITH AUTO DIFF [HEME] Routine Lab 08/24/16 07:27 Results Aspirin [Ecotrin] Med 08/23/16 09:00 Active 325 mg PO BID Furosemide [Lasix] Med 08/23/16 11:49 Active 20 mg PO DAILY PRN LORazepam [Ativan] Med 08/23/16 11:50 Active 1 mg PO Q8H PRN Multivitamins,Therapeutic [Thera] Med 08/23/16 07:00 Active 1 each PO WITHBREAKFAST Tapentadol [Nucynta] Med 08/23/16 13:35 Active 50 - 100 mg PO Q4H PRN Zolpidem [Ambien] Med 08/23/16 21:00 Active 10 mg PO BEDTIME Medication Orders Aspirin (Ecotrin) 325 mg PO BID [facility] Last Admin: 08/23/16 22:48 Dose: 325 mg Admin: 08/23/16 09:48 Dose: 325 mg Bisacodyl (Dulcolax) 5 mg PO DAILY PRN PRN Reason: Constipation Bupropion HCl (Wellbutrin Xl) 450 mg PO BEDTIME [facility] Last Admin: 08/23/16 22:46 Dose: 450 mg Admin: 08/22/16 21:13 Dose: 450 mg Citalopram Hydrobromide (Celexa) 40 mg PO BEDTIME [facility] Last Admin: 08/23/16 22:46 Dose: 40 mg Admin: 08/22/16 21:16 Dose: 40 mg Cyclobenzaprine HCl (Flexeril) 10 mg PO TID PRN PRN Reason: Spasms Last Admin: 08/23/16 22:48 Dose: 10 mg Admin: 08/23/16 18:41 Dose: 10 mg Admin: 08/22/16 23:33 Dose: 10 mg Admin: 08/22/16 15:41 Dose: 10 mg Docusate Sodium (Colace) 100 mg PO BID [facility] Last Admin: 08/23/16 22:48 Dose: 100 mg Admin: 08/23/16 09:48 Dose: 100 mg Admin: 08/22/16 21:11 Dose: 100 mg Furosemide (Lasix) 20 mg PO DAILY PRN PRN Reason: Other Levothyroxine Sodium (Levothyroxine) 112 mcg PO BEDTIME [facility] Last Admin: 08/23/16 22:49 Dose: 112 mcg Admin: 08/22/16 21:13 Dose: 112 mcg Lorazepam (Ativan) 1 mg PO Q8H PRN PRN Reason: Anxiety Last Admin: 08/24/16 05:44 Dose: 1 mg Admin: 08/23/16 22:43 Dose: 1 mg Admin: 08/23/16 14:20 Dose: 1 mg Magnesium Hydroxide (Milk Of Magnesia) 30 ml PO BID PRN PRN Reason: Constipation Morphine Sulfate (Morphine) 2 mg IVPUSH Q2H PRN PRN Reason: Breakthrough Pain Last Admin: 08/23/16 19:53 Dose: 2 mg Admin: 08/23/16 14:26 Dose: 2 mg Admin: 08/23/16 10:00 Dose: 1 mg Admin: 08/23/16 01:28 Dose: 2 mg Admin: 08/22/16 17:08 Dose: 2 mg Admin: 08/22/16 15:10 Dose: 2 mg Multivitamins (Thera) 1 each PO WITHBREAKFAST [facility] Last Admin: 08/23/16 09:48 Dose: 1 each Ondansetron HCl (Zofran) 4 mg IVPUSH Q6H PRN PRN Reason: Nausea/Vomiting Last Admin: 08/23/16 08:48 Dose: 4 mg Pantoprazole Sodium (Protonix) 40 mg PO BEDTIME [facility] Last Admin: 08/23/16 22:44 Dose: 40 mg Admin: 08/22/16 21:12 Dose: 40 mg Pregabalin (Lyrica) 150 mg PO BID PRN PRN Reason: Pain Last Admin: 08/23/16 10:07 Dose: 150 mg Admin: 08/22/16 21:11 Dose: 150 mg Senna (Senna) 8.6 mg PO BID PRN PRN Reason: Constipation Last Admin: 08/23/16 22:45 Dose: 8.6 mg Tapentadol (Nucynta) 50 - 100 mg PO Q4H PRN PRN Reason: Pain Last Admin: 08/24/16 04:40 Dose: 100 mg Admin: 08/24/16 00:00 Dose: 100 mg Admin: 08/23/16 19:51 Dose: 100 mg Admin: 08/23/16 15:11 Dose: 100 mg Verapamil HCl (Calan Sr) 240 mg PO BEDTIME [facility] Last Admin: 08/23/16 22:47 Dose: 240 mg Admin: 08/22/16 21:14 Dose: 240 mg Zolpidem Tartrate (Ambien) 10 mg PO BEDTIME [facility] Last Admin: 08/23/16 22:44 Dose: 10 mg - Assessment Assessment (Free Text/Narrative):: POD#2 - right TKA - Plan Plan (Free Text/Narrative):: 1. Discharge to home today. 2. Nucynta for pain management. 3. Outpatient P.T. 4. 325mg ASA BID, TEDs, frequent mobility discussed again today. The pt's case was discussed with Dr. Griffin.
[2016-08-24 08:59] VITALS: BP 148/74
[2016-08-24] MEDS: Docusate Sodium 100 MG Cap PO SCH (09:15)
[2016-08-24] MEDS: Aspirin 325 MG Tab.EC PO SCH (09:15)
[2016-08-24] MEDS: Multivitamins,Therapeutic Tab PO SCH (09:17)
--- NOTE | 2016-08-24 09:46 | PCM.DCSUM1 ---
Discharge Summary - Hospital Course Brief History: Leilani is a 45 yo female who underwent right TKA with Dr. Griffin on 08-22-2016. The procedure was completed under spinal anesthesia. The pt tolerated the procedure well and was admitted to the [facility] under Medical- Surgical status. Medical management was provided by the Hospitalist service. The pt's Hospital course was remarkable for difficulty with pain control initially. The pt's Hgb on POD#1 was 11.2. On POD#1, 325mg BID was initiated for VTE prophylaxis. SCDs and TEDs were also ordered. A Mepilex dressing was placed at the incision site at the time of surgery and remained clean and dry. The pt participated in P.T. and O.T. The pt was allowed to WBAT. On POD#2, the pt was deemed appropriate to discharge to home with family. - Discharge Data Discharge Date: 08/24/16 Discharge Disposition: Home, Self-Care 01 Condition: Good - Patient Summary/Data Consults: Consultations 08/22/16 13:39 Consult to Occupational Therapy [OT Evaluation and Treatment] [CONS] Routine Consult to Physical Therapy [PT Evaluation and Treatment] [CONS] Routine 08/22/16 15:09 Consult to Physician [CONS] Routine - Patient Instructions Diet: Usual Diet as Tolerated Activity: Apply Ice, As Tolerated, Elevate Extremity, Full Weight Bearing Driving: Do Not Drive Showering/Bathing: May Shower Wound/Incision Care: Keep Operative Site/Wound Site Clean and Dry, Do NOT Change Dressing Notify Provider of: Fever, Increased Pain, Swelling and Redness, Drainage, Nausea and/or Vomiting Other/Special Instructions: Please get up and moving around every hour while awake. This helps to prevent blood clots. Please use your walker and have help with mobility as needed. Please take a 325mg ASPIRIN TWICE DAILY. This also helps to prevent blood clots. You may schedule for P.T. Use the pain medication as needed. The medication may cause drowsiness and constipation. Contact your primary care provider for instructions if you are constipated. You may use a stool softener like docusate sodium or Colace 100mg twice daily and/or a laxative like Miralax daily for constipation. Wear the ANNE hose during the day and you may remove these at night. Place ice to the knee often. Place a towel between your skin and the blue pad. Schedule an appointment with your primary care provider for 'routine post-op care'. Keep the Mepilex dressing in place until follow-up. Call the Clinic with questions or concerns - [phone]. - Discharge Plan Prescriptions/Med Rec: Aspirin [Ecotrin] 325 mg PO BID #84 tab.ec Cyclobenzaprine [Flexeril] 10 mg PO TID PRN #40 tablet PRN Reason: muscle spasms Tapentadol HCl [Nucynta] 1 - 2 mg PO Q4H PRN #40 tablet PRN Reason: Pain Home Medications: Home Meds Citalopram Hydrobromide [Celexa] 40 mg PO DAILY 11/08/14 [History] LORazepam [Ativan] 1 mg PO QID PRN 11/08/14 [History] Levothyroxine 112 mcg PO DAILY 11/08/14 [History] Pantoprazole [ProTONIX] 40 mg PO DAILY 11/08/14 [History] Verapamil [Verelan] 240 mg PO DAILY 11/08/14 [History] buPROPion [Wellbutrin XL] 450 mg PO DAILY 11/08/14 [History] Furosemide [Lasix] 20 mg PO DAILY PRN 04/23/15 [History] Pregabalin [Lyrica] 150 mg PO BID PRN 08/19/16 [History] Zolpidem [Ambien] 10 mg PO BEDTIME 08/19/16 [History] Aspirin [Ecotrin] 325 mg PO BID #84 tab.ec 08/24/16 [Rx] Cyclobenzaprine [Flexeril] 10 mg PO TID PRN #40 tablet 08/24/16 [Rx] Tapentadol HCl [Nucynta] 1 - 2 mg PO Q4H PRN #40 tablet 08/24/16 [Rx] Patient Handouts: Total Knee Replacement, Care After, [id number], Total Knee Replacement, [id number], Aspirin, ASA oral tablets, Knee Rehabilitation Guidelines Following Surgery Referrals: Ene Moreira PA-C [Physician [employer]] - - Patient Data Vitals - Most Recent: Last Vital Signs Temp 99.9 F 08/24/16 07:14 Pulse 92 08/24/16 07:53 Resp 12 08/24/16 07:14 BP 148/74 H 08/24/16 07:14 Pulse Ox 97 08/24/16 07:53 Weight - Most Recent: 250 lb 6.4 oz I&O - Last 24 hours: Intake & Output 08/23/16 08/24/16 08/24/16 22:59 06:59 14:59 Intake Total 600 800 Output Total 350 Balance 250 800 Lab Results - Last 24 hrs: Laboratory Results - last 24 hr 08/24/16 08/24/16 Range/Units 07:27 07:27 WBC 9.74 (3.98-10.04) K/mm3 RBC 3.73 L (3.98-5.22) M/mm3 Hgb 10.8 L (11.2-15.7) gm/L Hct 32.8 L (34.1-44.9) % MCV 87.9 (79.4-94.8) fl MCH 29.0 (25.6-32.2) pg MCHC 32.9 (32.2-35.5) g/dl RDW Std Deviation 47.6 H (36.4-46.3) fL Plt Count 242 (182-369) K/mm3 MPV 8.8 L (9.4-12.3) fl Neut % (Auto) 68.0 (34.0-71.1) % Lymph % (Auto) 14.6 L (19.3-51.7) % [place] % (Auto) 16.3 H (4.7-12.5) % Eos % (Auto) 0.6 L (0.7-5.8) Baso % (Auto) 0.1 (0.1-1.2) % Neut # (Auto) 6.62 H (1.56-6.13) K/mm3 Lymph # (Auto) 1.42 (1.18-3.74) K/mm3 [place] # (Auto) 1.59 H (0.24-0.36) K/mm3 Eos # (Auto) 0.06 (0.04-0.36) K/mm3 Baso # (Auto) 0.01 (0.01-0.08) K/mm3 Manual Slide Review Normal smear Sodium 136 (136-145) mEq/L Potassium 3.8 (3.5-5.1) mEq/L Chloride 100 (98-107) mEq/L Carbon Dioxide 28 (21-32) mEq/L Anion Gap 11.8 (5-15) BUN 6 L (7-18) mg/dL Creatinine 0.8 (0.55-1.02) mg/dL Est Cr Clr Drug Dosing 74.21 mL/min Estimated GFR (MDRD) > 60 (>60) mL/min BUN/Creatinine Ratio 7.5 L (14-18) Glucose 121 H (74-106) mg/dL Calcium 8.7 (8.5-10.1) mg/dL Med Orders - Current: Current Medications Aspirin (Ecotrin) 325 mg PO BID [facility] Last Admin: 08/24/16 09:15 Dose: 325 mg Bisacodyl (Dulcolax) 5 mg PO DAILY PRN PRN Reason: Constipation Bupropion HCl (Wellbutrin Xl) 450 mg PO BEDTIME [facility] Last Admin: 08/23/16 22:46 Dose: 450 mg Citalopram Hydrobromide (Celexa) 40 mg PO BEDTIME [facility] Last Admin: 08/23/16 22:46 Dose: 40 mg Cyclobenzaprine HCl (Flexeril) 10 mg PO TID PRN PRN Reason: Spasms Last Admin: 08/23/16 22:48 Dose: 10 mg Docusate Sodium (Colace) 100 mg PO BID [facility] Last Admin: 08/24/16 09:15 Dose: 100 mg Furosemide (Lasix) 20 mg PO DAILY PRN PRN Reason: Other Levothyroxine Sodium (Levothyroxine) 112 mcg PO BEDTIME [facility] Last Admin: 08/23/16 22:49 Dose: 112 mcg Lorazepam (Ativan) 1 mg PO Q8H PRN PRN Reason: Anxiety Last Admin: 08/24/16 05:44 Dose: 1 mg Magnesium Hydroxide (Milk Of Magnesia) 30 ml PO BID PRN PRN Reason: Constipation Morphine Sulfate (Morphine) 2 mg IVPUSH Q2H PRN PRN Reason: Breakthrough Pain Last Admin: 08/23/16 19:53 Dose: 2 mg Multivitamins (Thera) 1 each PO WITHBREAKFAST [facility] Last Admin: 08/24/16 09:17 Dose: 1 each Ondansetron HCl (Zofran) 4 mg IVPUSH Q6H PRN PRN Reason: Nausea/Vomiting Last Admin: 08/23/16 08:48 Dose: 4 mg Pantoprazole Sodium (Protonix) 40 mg PO BEDTIME [facility] Last Admin: 08/23/16 22:44 Dose: 40 mg Pregabalin (Lyrica) 150 mg PO BID PRN PRN Reason: Pain Last Admin: 08/23/16 10:07 Dose: 150 mg Senna (Senna) 8.6 mg PO BID PRN PRN Reason: Constipation Last Admin: 08/23/16 22:45 Dose: 8.6 mg Tapentadol (Nucynta) 50 - 100 mg PO Q4H PRN PRN Reason: Pain Last Admin: 08/24/16 09:15 Dose: 100 mg Verapamil HCl (Calan Sr) 240 mg PO BEDTIME [facility] Last Admin: 08/23/16 22:47 Dose: 240 mg Zolpidem Tartrate (Ambien) 10 mg PO BEDTIME [facility] Last Admin: 08/23/16 22:44 Dose: 10 mg Discontinued Medications Bupivacaine HCl (Marcaine 0.25%) Confirm Administered Dose 30 ml .ROUTE .STK- MED ONE Stop: 08/22/16 08:43 Last Admin: 08/22/16 12:00 Dose: 30 ml Bupropion HCl (Wellbutrin Xl) 450 mg PO DAILY [facility] Cefazolin Sodium (Ancef) Confirm Administered Dose 2 gm .ROUTE .STK-MED ONE Stop: 08/22/16 08:43 Cefazolin Sodium (Ancef) Confirm Administered Dose 2 gm .ROUTE .STK-MED ONE Stop: 08/22/16 09:32 Last Admin: 08/22/16 11:54 Dose: 2 gm Citalopram Hydrobromide (Celexa) 40 mg PO DAILY [facility] Morphine Sulfate 8 mg/Epinephrine HCl 0.3 mg/Cefuroxime Sodium 750 mg/Ketorolac Tromethamine 30 mg/Sodium Chloride 27.9 ml 0 mg .XX ONETIME ONE Stop: 08/22/16 10:31 Last Admin: 08/22/16 19:48 Dose: Not Given Diphenhydramine HCl (Benadryl) 25 mg IVPUSH Q6H PRN PRN Reason: pruritis Stop: 08/22/16 13:30 Ephedrine Sulfate (Ephedrine Sulfate) 5 mg IVPUSH ASDIRECTED PRN PRN Reason: Hypotension Stop: 08/22/16 13:30 Famotidine (Pepcid) 20 mg PO BID [facility] Last Admin: 08/22/16 21:12 Dose: 20 mg Fentanyl (Sublimaze) Confirm Administered Dose 100 mcg .ROUTE .STK-MED ONE Stop: 08/22/16 09:33 Fentanyl (Sublimaze) 50 mcg IVPUSH Q5M PRN PRN Reason: Pain Stop: 08/22/16 11:00 Hydromorphone HCl (Dilaudid) 0.5 mg IVPUSH Q15M PRN PRN Reason: severe pain Stop: 08/22/16 11:00 Hydromorphone HCl (Dilaudid) 0.5 mg IVPUSH ONETIME ONE Stop: 08/22/16 18:47 Last Admin: 08/22/16 18:56 Dose: 0.5 mg Hydromorphone HCl (Dilaudid) Confirm Administered Dose 0.5 mg .ROUTE .STK-MED ONE Stop: 08/22/16 19:20 Last Admin: 08/22/16 19:25 Dose: 0.5 mg Lactated Ringer's (Ringers, Lactated) 1,000 mls @ 125 mls/hr IV ASDIRECTED [facility] Lactated Ringer's (Ringers, Lactated) 1,000 mls @ 125 mls/hr IV ASDIRECTED [facility] Stop: 08/22/16 23:00 Last Admin: 08/22/16 09:15 Dose: 125 mls/hr Cefazolin Sodium/Dextrose 2 gm (/ Premix) 50 mls @ 100 mls/hr IV Q8H [facility] Stop: 08/23/16 10:29 Last Admin: 08/23/16 09:54 Dose: 100 mls/hr Lidocaine HCl (Xylocaine-Mpf 1%) Confirm Administered Dose 10 mls @ as directed .ROUTE .STK-MED ONE Stop: 08/22/16 09:32 Lactated Ringer's (Ringers, Lactated) Confirm Administered Dose 1,000 mls @ as directed .ROUTE .STK-MED ONE Stop: 08/22/16 09:32 Phenylephrine HCl 1 mg/ Sodium (Chloride) 10.1 mls @ 1 mls/sec IV TITRATE [facility] Stop: 08/22/16 13:30 Lactated Ringer's (Ringers, Lactated) Confirm Administered Dose 1,000 mls @ as directed .ROUTE .STK-MED ONE Stop: 08/22/16 12:23 Iodine (Iodine 2% Mild Tincture) Confirm Administered Dose 30 ml .ROUTE .STK- MED ONE Stop: 08/22/16 08:43 Last Admin: 08/22/16 11:50 Dose: 18 ml Ketorolac Tromethamine (Toradol) 15 mg IVPUSH Q6H PRN PRN Reason: Pain Stop: 08/22/16 18:01 Last Admin: 08/22/16 14:35 Dose: 15 mg Ketorolac Tromethamine (Toradol) 15 mg IVPUSH Q6H PRN PRN Reason: Pain Stop: 08/22/16 20:56 Ketorolac Tromethamine (Toradol) 15 mg IVPUSH ONETIME ONE Stop: 08/22/16 23:23 Last Admin: 08/22/16 23:33 Dose: 15 mg Lidocaine/Sodium Bicarbonate (Buffered Lidocaine 1% In Ns 8.4%) 0.25 ml IV ONETIME PRN PRN Reason: Prior to IV Start Lidocaine/Sodium Bicarbonate (Buffered Lidocaine 1% In Ns 8.4%) 0.25 ml .XX ONETIME PRN PRN Reason: Prior to IV Start Stop: 08/22/16 15:00 Last Admin: 08/22/16 09:14 Dose: 0.25 ml Meperidine HCl (Demerol) 12.5 mg IVPUSH ONETIME PRN PRN Reason: shivering Stop: 08/23/16 10:45 Midazolam HCl (Versed 1 Mg/Ml) Confirm Administered Dose 2 mg .ROUTE .STK-MED ONE Stop: 08/22/16 09:33 Midazolam HCl (Versed 1 Mg/Ml) Confirm Administered Dose 2 mg .ROUTE .STK-MED ONE Stop: 08/22/16 10:01 Midazolam HCl (Versed 1 Mg/Ml) 2 mg IVPUSH ONETIME PRN PRN Reason: Sedation Stop: 08/22/16 13:30 Midazolam HCl (Versed 1 Mg/Ml) Confirm Administered Dose 2 mg .ROUTE .STK-MED ONE Stop: 08/22/16 11:01 Midazolam HCl (Versed 1 Mg/Ml) Confirm Administered Dose 2 mg .ROUTE .STK-MED ONE Stop: 08/22/16 12:23 Midazolam HCl (Versed 1 Mg/Ml) Confirm Administered Dose 2 mg .ROUTE .STK-MED ONE Stop: 08/22/16 12:30 Morphine Sulfate (Duramorph Pf) Confirm Administered Dose 10 mg .ROUTE .STK-MED ONE Stop: 08/22/16 09:29 Naloxone HCl (Narcan) 0.1 mg IVPUSH Q5M PRN PRN Reason: Oversedation Stop: 08/22/16 12:16 Ondansetron HCl (Zofran) 4 mg IVPUSH ONETIME PRN PRN Reason: Nausea/Vomiting Stop: 08/22/16 13:30 Pantoprazole Sodium (Protonix) 40 mg PO ACBREAKFAST [facility] Phenylephrine HCl (Phenylephrine In Ns 100 Mcg/Ml) Confirm Administered Dose 1 mg .ROUTE .STK-MED ONE Stop: 08/22/16 11:03 Propofol (Diprivan 20 Ml) Confirm Administered Dose 400 mg .ROUTE .STK-MED ONE Stop: 08/22/16 09:33 Propofol (Diprivan 20 Ml) Confirm Administered Dose 200 mg .ROUTE .STK-MED ONE Stop: 08/22/16 10:46 Propofol (Diprivan 20 Ml) Confirm Administered Dose 200 mg .ROUTE .STK-MED ONE Stop: 08/22/16 11:09 Propofol (Diprivan 20 Ml) Confirm Administered Dose 200 mg .ROUTE .STK-MED ONE Stop: 08/22/16 12:23 Scopolamine (Transderm-Scop) 1.5 mg TRDERM ONETIME ONE Stop: 08/22/16 09:31 Last Admin: 08/22/16 09:32 Dose: 1.5 mg Sodium Chloride (Saline Flush) 10 ml FLUSH ASDIRECTED PRN PRN Reason: Keep Vein Open Sodium Chloride (Saline Flush) 10 ml FLUSH ASDIRECTED PRN PRN Reason: Keep Vein Open Stop: 08/22/16 15:00 Tapentadol (Nucynta) 50 - 100 mg PO Q6H PRN PRN Reason: Pain Last Admin: 08/23/16 11:19 Dose: 100 mg Tranexamic Acid (Cyklokapron) Confirm Administered Dose 1,000 mg .ROUTE .STK- MED ONE Stop: 08/22/16 08:43 Last Admin: 08/22/16 12:06 Dose: 1,000 mg Verapamil HCl (Calan Sr) 240 mg PO DAILY [facility] *Q Meaningful Use (DIS) - VTE *Q VTE Criteria *Q: - Stroke *Q Stroke Criteria *Q: - AMI *Q AMI Criteria *Q:
--- NOTE | 2016-08-29 22:11 | PCM.OPNOTE ---
- General Post-Op/Procedure Note Date of Surgery/Procedure: 08/22/16 Operative Procedure(s): right total knee arthroplasty Pre Op Diagnosis: right knee osteoarthrosis Post-Op Diagnosis: Same Anesthesia Technique: Local, MAC, Spinal Primary Surgeon: Sujit Griffin Anesthesia Provider: Cristina Moser Comber Tender: Ene Moreira Comber Tender: Diana Stanford EBL in mLs: 200 Complications: None Condition: Good
--- NOTE | 2016-08-29 22:48 | OR ---
DATE OF OPERATION: 08/22/2016 SURGEON: Sujit Griffin MD OPERATION PERFORMED: Right total knee arthroplasty. PREOPERATIVE DIAGNOSIS: Right knee osteoarthrosis. POSTOPERATIVE DIAGNOSIS: Right knee osteoarthrosis. ANESTHESIA: Local MAC with spinal. ANESTHESIA PROVIDER: Cristina Moser CRNA ASSISTANTS: Ene Moreira PA-C and Diana Stanford LPN. ESTIMATED BLOOD LOSS: 200 mL COMPLICATIONS: None. CONDITION: Stable. IMPLANTS: 1. Sergio size 4 PS femur. 2. Sergio size 3 universal tibial base plate. 3. Sergio size 3, 9 mm PS X3 polyethylene. 4. [place] size 32 x 10 mm asymmetric patella. DESCRIPTION OF PROCEDURE: The patient was identified in the preop holding area. Proper site was marked and identified by the surgeon. The patient was taken back to the operating theater. After adequate anesthesia, the patient's right lower extremity had a nonsterile tourniquet applied and it was then sterilely prepped and draped in the usual sterile fashion. OR timeout was performed. The patient received 2 g IV Ancef. At this time, right lower extremity was exsanguinated. Tourniquet was insufflated to 300 mmHg. Standard medial parapatellar incision was made. Medial parapatellar arthrotomy was created. Deep fibers of the MCL were raised and anterior fat pad was resected. At this time, attention was turned to the patella. Patella measured 23, it was resected to a 13 for a 32 x 10 mm patella. Drill holes were then drilled and found to be in adequate position. The drill was then drilled in the distal femur and the intramedullary distal femoral cutting guide was then placed. 8 mm was resected off the distal femur and was found to be an adequate resection. Sizing guide was placed. It was found to be a size 4 femur that was shown on the implant record at the beginning of this dictation. The drill holes were drilled for the epicondylar axis using [place] line and epicondyles as reference. At this time, the 4-in-1 cutting block was placed. An anterior posterior and anterior and posterior chamfer cuts were then completed. The correct size box cut was then placed and the box cut was completed and found to be an adequate resection. Attention was turned to the tibia. The posterior medial lateral retractors were placed. The extramedullary tibial guide was placed. It was placed in the old footprint of the ACL. It was aligned with the center of the ankle and 0 degrees of slope, 9 mm was then resected off the unaffected lateral side. There was found to be an acceptable reduction. At this time, posterior osteophytes were removed along with medial and lateral meniscus. A trial implant was placed with a correct sized tibia that was mentioned at the beginning of the dictation. A 9 mm PS X3 polyethylene was then placed. The patient's knee was brought through range of motion. The patella was tracking centrally and was stable to varus and valgus stress. Alignment was found to be roughly at 0 degrees. At this time, cement was mixed on the back table. The tibia was stamped and drilled in proper rotation. All cut surfaces were irrigated with pulse lavage irrigation with Ancef and then completely dried. Once this was completed, then the cement was ready. The universal tibial base plate was cemented in place. Next, the femur cemented into place and the 9 mm PS X3 polyethylene was placed. The patient's knee was brought into full extension. Excess cement was removed. The patella was then cemented in place at this time. Tourniquet was deflated. One liter dilute Betadine solution was irrigated through the knee along with 3 L of pulse lavage irrigation with Ancef. Periarticular injection was then completed. The patient's knee was brought through a range of motion. Once the cement had time to set up and it was found to be stable to varus valgus stress, the patella was tracking centrally with full range of motion. At this time, a #2 barbed suture was used for closure of the medial parapatellar arthrotomy. Topical tranexamic acid was placed. 2-0 Vicryl was used subcutaneously, a running 3-0 Monocryl was used subcuticularly. The patient tolerated the procedure well and was sent to the PACU in stable condition. MMLUCIANA /[id number] JEANNIE
== END 2016-08-24 13:00 | disposition home or self-care (01) | DRG 302 ==
LOC: JD.OB 08-22 08:42 → JD.MS 08-24 03:05
PROVIDERS: ADMIT Orthopaedic Surgery; ATTEND Orthopaedic Surgery
PROC: 0SRC0J9 Replacement of Right Knee Joint with Synthetic Substitute, Cemented, Open Approach (ICD-10-PCS; principal; 2016-08-22)
DX: M17.11 Unilateral primary osteoarthritis, right knee (principal); I10 Essential (primary) hypertension; F32.9 Major depressive disorder, single episode, unspecified; F41.9 Anxiety disorder, unspecified; K21.9 Gastro-esophageal reflux disease without esophagitis; E03.9 Hypothyroidism, unspecified; Z68.41 Body mass index [BMI] 40.0-44.9, adult; E66.01 Morbid (severe) obesity due to excess calories; Z96.651 Presence of right artificial knee joint; Z79.899 Other long term (current) drug therapy; Z88.1 Allergy status to other antibiotic agents
CPT/HCPCS: 01402; 36415; 73560-26-RT; 73560-RT; 80048; 80053; 85025; 87641; 94762; 97110-GP; 97116-GP; 97162-GP; 97166-GO; 97530-GP; 97535-GO; 99221; 99231; A9270-GY; C1713; C1776; J0171; J0690; J0697; J1170; J1885; J2250; J2270; J2405; J2704; J3010; J3490; J7120

== ENCOUNTER 2017-08-06 13:21 | Emergency (ER) | payer BC ==
[2017-08-06 13:49] VITALS: BP 139/86
--- NOTE | 2017-08-06 14:32 | EDM.PDOC ---
ED HPI GENERAL MEDICAL PROBLEM - General Chief Complaint: Eye Problems Stated Complaint: RIGHT EYE ISSUES Time Seen by Provider: 08/06/17 14:04 Source of Information: Reports: Patient History Limitations: Reports: No Limitations - History of Present Illness INITIAL COMMENTS - FREE TEXT/NARRATIVE: The patient presents with right eye pain. This started a few days ago. 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 She uses drops. She noticed some pain a few days ago. The pain is worse. She has no fever, chills , vision changes or double vision. She has no numbness or weakness. Onset: Gradual Duration: Day(s): Location: Reports: Other (Right eye and head) Quality: Reports: Sharp Severity: Severe Improves with: Reports: None Worsens with: Reports: None Context: Reports: Activity Associated Symptoms: Reports: No Other Symptoms Treatments BELT LACER: Reports: Acetaminophen, Other (see below) Other Treatments BELT LACER: wetting drops Right Eye Pain Score (Numeric/FACES): 6 - Related Data Allergies Allergy/AdvReac Type Severity Reaction Status Date / Time adhesive Allergy Rash Verified 08/22/16 10:02 doxycycline AdvReac Nausea Verified 08/22/16 10:02 Sulfa (Sulfonamide AdvReac Tachycardia Verified 08/22/16 10:02 Antibiotics) Home Meds: Home Meds Citalopram Hydrobromide [Celexa] 40 mg PO DAILY 11/08/14 [History] LORazepam [Ativan] 1 mg PO QID PRN 11/08/14 [History] Levothyroxine 112 mcg PO DAILY 11/08/14 [History] Verapamil [Verelan] 240 mg PO DAILY 11/08/14 [History] buPROPion [Wellbutrin XL] 450 mg PO DAILY 11/08/14 [History] Furosemide [Lasix] 20 mg PO DAILY PRN 04/23/15 [History] Pregabalin [Lyrica] 150 mg PO BID PRN 08/19/16 [History] Zolpidem [Ambien] 10 mg PO BEDTIME 08/19/16 [History] Cyclobenzaprine [Flexeril] 10 mg PO TID PRN #40 tablet 08/24/16 [Rx] Ciprofloxacin [Ciprofloxacin 0.3% Ophth Soln] 1 ml OP Q2H #1 bottle 08/06/17 [Rx ] Pantoprazole Sodium [Protonix] 40 mg PO DAILY 08/06/17 [History] oxyCODONE HCl/Acetaminophen [Percocet 5-325 mg Tablet] 1 - 2 each PO Q6HR PRN # 20 tablet 08/06/17 [Rx] Past Medical History HEENT History: Reports: None Other HEENT History: wears glasses Cardiovascular History: Reports: Hypertension Respiratory History: Reports: None Other Respiratory History: walking pneumonia Gastrointestinal History: Reports: GERD, Other (See Below) Other Gastrointestinal History: Postoperative nausea and vomiting Genitourinary History: Reports: None Other Genitourinary History: issues with bladder- hard time starting 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: Musculoskeletal History: Reports: Other (See Below) Other Musculoskeletal History: Right knee pain Neurological History: Reports: Other (See Below) Other Neuro History: Resendez's Palsy Psychiatric History: Reports: Anxiety, Depression, Other (See Below) Other Psychiatric History: Grief, insomnia Endocrine/Metabolic History: Reports: Hypothyroidism Hematologic History: Reports: None Immunologic History: Reports: None Oncologic (Cancer) History: Reports: None Dermatologic History: Reports: None - Past Surgical History Head Surgeries/Procedures: Reports: None HEENT Surgical History: Reports: Tonsillectomy Cardiovascular Surgical History: Reports: None Respiratory Surgical History: Reports: None GI Surgical History: Reports: None Female Surgical History: Reports: Hysterectomy Endocrine Surgical History: Reports: None Neurological Surgical History: Reports: None Musculoskeletal Surgical History: Reports: Knee Replacement Oncologic Surgical History: Reports: None Dermatological Surgical History: Reports: None Social & Family History - Tobacco Use Smoking Status *Q: Never Smoker - Caffeine Use Caffeine Use: Reports: Soda - Recreational Drug Use Recreational Drug Use: No - Living Situation & Occupation Living situation: Reports: , with Spouse ED ROS GENERAL - Review of Systems Review Of Systems: See Below Constitutional: Reports: No Symptoms HEENT: Reports: Eye Pain (Right) Respiratory: Reports: No Symptoms Cardiovascular: Reports: No Symptoms Endocrine: Reports: No Symptoms GI/Abdominal: Reports: No Symptoms : Reports: No Symptoms Musculoskeletal: Reports: No Symptoms ED EXAM GENERAL W FULL EYE - Physical Exam Exam: See Below Exam Limited By: No Limitations General Appearance: Alert, No Apparent Distress Eye Exam: Right Eye: Corneal Abrasion, Bilateral Eye: EOMI, PERRL Visual Acuity (R) 20/: 50 Visual Acuity (L) 20/: 70 IOP (R) in mmH IOP (L) in mmH Eyelids: Bilateral: Normal Appearance Conjunctiva & Sclera: Bilateral: Normal Appearance Cornea Exam: Right: Corneal Abrasion (Small) Extraocular Movements: Bilateral: Intact Pupillary Size: Bilateral: 4 mm Pupillary Reaction: Bilateral: Brisk Anterior Chamber: Right: Normal Appearance Course - Vital Signs Last Recorded V/S: Last Vital Signs Temp 98.4 F 08/06/17 13:47 Pulse 88 08/06/17 13:47 Resp 20 08/06/17 13:47 BP 139/86 08/06/17 13:47 Pulse Ox 94 L 08/06/17 13:47 - Re-Assessments/Exams Free Text/Narrative Re-Assessment/Exam: 08/06/17 14:31 I will get her on some cipro drops and some percocet for pain. Departure - Departure Time of Disposition: 14:35 Disposition: Home, Self-Care 01 Condition: Good Clinical Impression: Corneal abrasion Qualifiers: Encounter type: initial encounter Laterality: right Qualified Code(s): S05.01XA - Injury of conjunctiva and corneal abrasion without foreign body, right eye, initial encounter - Discharge Information Prescriptions: oxyCODONE HCl/Acetaminophen [Percocet 5-325 mg Tablet] 1 - 2 each PO Q6HR PRN # 20 tablet PRN Reason: Pain Ciprofloxacin [Ciprofloxacin 0.3% Ophth Soln] 1 ml OP Q2H #1 bottle Referrals: Lia Segal CREATIVE SERVICES INTERN [Primary Care Provider] - Additional Instructions: Use the cipro drops 1 drop every 4 hours while awake for 5 days. Use the percocet every 6 hours as needed for pain. Please return if you are worse.
== END 2017-08-06 15:02 | disposition home or self-care (01) ==
LOC: JD.ED 13:21
DX: S05.01XA Injury of conjunctiva and corneal abrasion without foreign body, right eye, initial encounter (principal); I10 Essential (primary) hypertension; K21.9 Gastro-esophageal reflux disease without esophagitis; E03.9 Hypothyroidism, unspecified; Z91.048 Other nonmedicinal substance allergy status; Z88.1 Allergy status to other antibiotic agents; Z88.2 Allergy status to sulfonamides; Z79.899 Other long term (current) drug therapy; X58.XXXA Exposure to other specified factors, initial encounter
CPT/HCPCS: 99283

== ENCOUNTER 2018-06-29 11:48 | Emergency (ER) | payer BC ==
[2018-06-29 12:04] VITALS: BP 116/62
--- NOTE | 2018-06-29 12:35 | EDM.PDOC ---
ED HPI GENERAL MEDICAL PROBLEM - General Chief Complaint: Back Pain or Injury Stated Complaint: BACK PAIN Time Seen by Provider: 06/29/18 11:58 Source of Information: Reports: Patient History Limitations: Reports: No Limitations - History of Present Illness INITIAL COMMENTS - FREE TEXT/NARRATIVE: 47 y/o female presents to ER with cc lower back pain. She states "she has been falling the past 2 weeks." She states she landed on her back on the cement. She states she is flat footed and this affects her gait at times. She denies any neck or head pain. She is currently being treated for her chronic pain by Luz Maria Segal. She saw her 5 days ago, she had blood work and urinalysis at this time. She did mention her back pain during this visit, but it "wasn't this bad." She does report being constipated. She states nothing makes it better. It is worse with movement. The patient is noted to falling asleep during interview. She denies any incontinence of bowel or bladder. Onset Date: 06/15/18 Onset Time: 09:00 Duration: Getting Worse, Intermittent Location: Reports: Back Quality: Reports: Ache Severity: Mild Improves with: Reports: None Worsens with: Reports: Movement Associated Symptoms: Reports: Weakness. Denies: Chest Pain, Fever/Chills, Nausea/Vomiting, Shortness of Breath, Syncope Lower Back Pain Score (Numeric/FACES): 7 - Related Data Allergies Allergy/AdvReac Type Severity Reaction Status Date / Time adhesive Allergy Rash Verified 10/20/17 22:48 doxycycline AdvReac Nausea Verified 10/20/17 22:48 Sulfa (Sulfonamide AdvReac Tachycardia Verified 10/20/17 22:48 Antibiotics) Home Meds: Home Meds LORazepam [Ativan] 1 mg PO QID PRN 11/08/14 [History] Levothyroxine 112 mcg PO DAILY 11/08/14 [History] Verapamil [Verelan] 240 mg PO DAILY 11/08/14 [History] buPROPion [Wellbutrin XL] 450 mg PO DAILY 11/08/14 [History] Pregabalin [Lyrica] 150 mg PO BID PRN 08/19/16 [History] Zolpidem [Ambien] 10 mg PO BEDTIME PRN 08/19/16 [History] Pantoprazole Sodium [Protonix] 40 mg PO DAILY 08/06/17 [History] Escitalopram [Lexapro] 20 mg PO DAILY 06/29/18 [History] Past Medical History HEENT History: Reports: Other (See Below) Other HEENT History: wears glasses Cardiovascular History: Reports: Hypertension Respiratory History: Reports: None Other Respiratory History: walking pneumonia Gastrointestinal History: Reports: GERD, Other (See Below) Other Gastrointestinal History: Postoperative nausea and vomiting Genitourinary History: Reports: None Other Genitourinary History: issues with bladder- hard time starting stream NEW PATIENT ESCORT History: Reports: Musculoskeletal History: Reports: Other (See Below) Other Musculoskeletal History: Right knee pain Neurological History: Reports: Other (See Below) Other Neuro History: Resendez's Palsy Psychiatric History: Reports: Anxiety, Depression, Other (See Below) Other Psychiatric History: Grief, insomnia Endocrine/Metabolic History: Reports: Hypothyroidism Hematologic History: Reports: None Immunologic History: Reports: None Oncologic (Cancer) History: Reports: None Dermatologic History: Reports: None - Past Surgical History Head Surgeries/Procedures: Reports: None HEENT Surgical History: Reports: Tonsillectomy Cardiovascular Surgical History: Reports: None Respiratory Surgical History: Reports: None GI Surgical History: Reports: None Female Surgical History: Reports: Hysterectomy Endocrine Surgical History: Reports: None Neurological Surgical History: Reports: None Musculoskeletal Surgical History: Reports: Knee Replacement Other Musculoskeletal Surgeries/Procedures:: right Oncologic Surgical History: Reports: None Dermatological Surgical History: Reports: None Social & Family History - Tobacco Use Smoking Status *Q: Never Smoker - Caffeine Use Caffeine Use: Reports: Soda - Recreational Drug Use Recreational Drug Use: No - Living Situation & Occupation Living situation: Reports: , with Spouse ED ROS GENERAL - Review of Systems Review Of Systems: See Below Constitutional: Denies: Fever, Chills HEENT: Reports: No Symptoms Respiratory: Denies: Shortness of Breath Cardiovascular: Denies: Chest Pain Endocrine: Reports: Fatigue GI/Abdominal: Reports: Constipation. Denies: Abdominal Pain : Reports: No Symptoms Musculoskeletal: Reports: Back Pain, Muscle Pain, Other (flat footed.). Denies : Neck Pain Skin: Reports: No Symptoms Neurological: Denies: Headache, Numbness Psychiatric: Reports: No Symptoms Hematologic/Lymphatic: Reports: No Symptoms Immunologic: Reports: No Symptoms ED EXAM,LOWER BACK PAIN/INJURY - Physical Exam Exam: See Below Exam Limited By: No Limitations General Appearance: Alert, WD/WN, No Apparent Distress Eye Exam: Bilateral Eye: EOMI, PERRL Head: Atraumatic, Normocephalic Neck: Normal Inspection, Supple, Non-Tender, Full Range of Motion Respiratory/Chest: No Respiratory Distress, Lungs Clear, Normal Breath Sounds, No Accessory Muscle Use, Chest Non-Tender Cardiovascular: Normal Peripheral Pulses, Regular Rate, Rhythm, No Edema, No Gallop, No JVD, No Murmur, No Rub GI/Abdominal: Normal Bowel Sounds, Soft, Non-Tender, No Organomegaly, No Distention, No Abnormal Bruit, No Mass, Pelvis Stable Back Exam: Normal Inspection, Decreased Range of Motion, Other (Patient has decreased ROM due to pain. She has full ROM including ROM against resistance, she is able to bend, stoop, twist and dorsi-flex her toes. Her skin is intact with normal temperature and sensation. Her gait is stready. ). No: Vertebral Tenderness Extremities: Normal Inspection, Normal Range of Motion, Non-Tender, No Pedal Edema, Normal Capillary Refill Neurological: Alert, Normal Mood/Affect, Normal Dorsiflexion, CN II-XII Intact, Normal Gait Course - Vital Signs Last Recorded V/S: Last Vital Signs Temp 98.1 F 06/29/18 12:01 Pulse 92 06/29/18 12:01 Resp 20 06/29/18 12:01 BP 116/62 06/29/18 12:01 Pulse Ox 93 L 06/29/18 12:01 - Orders/Labs/Meds Orders: Active Orders 24 hr Category Date Time Status Sodium Chloride 0.9% [Normal Saline] 1,000 ml Med 06/29/18 14:00 Active IV ASDIRECTED Medication Orders Sodium Chloride (Normal Saline) 1,000 mls @ 999 mls/hr IV ASDIRECTED SADAF Last Admin: 06/29/18 14:26 Dose: 999 mls/hr Labs: Laboratory Tests 06/29/18 Range/Units 12:30 Urine Color Yellow (Yellow) Urine Appearance Clear (Clear) Urine pH 6.0 (5.0-8.0) Ur Specific [place] > or = 1.030 (1.005-1.030) Urine Protein 1+ H (Negative) Urine Glucose (UA) Negative (Negative) Urine Ketones 1+ H (Negative) Urine Occult Blood 2+ H (Negative) Urine Nitrite Negative (Negative) Urine Bilirubin Negative (Negative) Urine Urobilinogen 0.2 (0.2-1.0) Ur Leukocyte Esterase Negative (Negative) Meds: Medications Generic Name Dose Route Start Last Admin Trade Name Zahraa PRN Reason Stop Dose Admin Sodium Chloride 1,000 mls @ 999 mls/hr 06/29/18 14:00 06/29/18 14:26 Normal Saline IV 999 mls/hr ASDIRECTED SADAF Administration Discontinued Medications Generic Name Dose Route Start Last Admin Trade Name Zahraa PRN Reason Stop Dose Admin Ketorolac Tromethamine 30 mg 06/29/18 13:52 06/29/18 14:25 Toradol IVPUSH 06/29/18 13:53 30 mg ONETIME ONE Administration Lactulose 20 gm 06/29/18 12:57 06/29/18 13:04 Cephulac PO 06/29/18 12:58 20 gm ONETIME ONE Administration Magnesium Citrate 296 ml 06/29/18 12:57 06/29/18 13:04 Citrate Of Magnesia PO 06/29/18 12:58 296 ml ONETIME ONE Administration - Re-Assessments/Exams Free Text/Narrative Re-Assessment/Exam: 06/29/18 12:58 KUB reveals moderate amount of stool. I will medicate with LOC. 06/29/18 13:32 Urinalysis revealed + 1 protein + 1 ketones +[address] pending. Lumbar x-ray reveals slight scoliosis and degenerative changes. 06/29/18 13:[address] revealed small nonobstructing calculus within both kidneys. No ureteral dilation or ureteral stone is seen. No acute abnormality is appreciated on noncontrast CT study of the abdomen and pelvis performed as a ureteral stone protocol. I will hydrate with fluid and medicate with Toradol. 06/29/18 14:16 States she feels better after receiving IVF and Toradol. I will discharge home with instructions on kidney stones and diet regiment. Instructed her to take OTC Colace for her constipation. Instructed to take her OxyContin as directed for pain. Instructed her to follow up with Lia Segal. Instructed to return to the ER for any new or acute worsening symptoms. She verbalized understanding and is comfortable with plan for discharge. Departure - Departure Time of Disposition: 14:51 Disposition: Home, Self-Care 01 Condition: Good Clinical Impression: Kidney calculi Back pain Qualifiers: Back pain location: low back pain Chronicity: chronic Back pain laterality: midline Sciatica presence: without sciatica Qualified Code(s): M54.5 - Low back pain; G89.29 - Other chronic pain - Discharge Information *PRESCRIPTION DRUG MONITORING PROGRAM REVIEWED*: Yes *COPY OF PRESCRIPTION DRUG MONITORING REPORT IN PATIENT PEPE: Yes Instructions: Low-Purine Eating Plan, Kidney Stones, [id number], Acute Back Pain, Adult Referrals: Lia Segal, [facility] [Primary Care Provider] - Forms: ED Department Discharge Additional Instructions: You have been diagnosis with lower back pain, bilateral kidney stone and constipation. Follow the low purine diet, increase your fiber and water intake. Take over the counter Colace 100 mg twice daily to prevent constipation. Take your OxyContin as directed for pain. Follow up with Lia Segal. Return to the ER for any new or acute worsening symptoms. - My Orders Last 24 Hours: My Active Orders 06/29/18 14:00 Sodium Chloride 0.9% [Normal Saline] 1,000 ml IV ASDIRECTED - Assessment/Plan Last 24 Hours: My Active Orders 06/29/18 14:00 Sodium Chloride 0.9% [Normal Saline] 1,000 ml IV ASDIRECTED
[2018-06-29] MEDS ORDERED: Lactulose Soln 10 GM/15 ML 30 ML UD Cup PO ONE (12:57)
[2018-06-29] MEDS ORDERED: Magnesium Citrate Solution 296 ML Bottle PO ONE (12:57)
--- NOTE | 2018-06-29 13:14 | CR ---
Abdomen: Supine view of the abdomen was obtained. Slight increased stool within the colon is seen. Bowel gas pattern is otherwise unremarkable. No abnormal calcifications or soft tissue abnormality is seen. Bony structures are unremarkable. Impression: 1. Slight increased stool within the colon. Diagnostic code #2
--- NOTE | 2018-06-29 13:24 | CR ---
Lumbar spine: AP, lateral and cone-down lateral views centered to the lumbosacral junction were obtained. Comparison: Previous MRI lumbar spine study of 10/28/16. Moderate to severe disc space narrowing noted at L2-L3 and L3-L4. Other disc spaces are maintained. Vertebral body heights are maintained. Minimal scattered endplate osteophytes are seen. Slight scoliosis is noted. Pedicles as well as transverse and spinous processes are intact. Impression: 1. Slight scoliosis and degenerative change as noted above. Diagnostic code #2
--- NOTE | 2018-06-29 13:41 | CT ---
CT abdomen and pelvis Technique: Multiple axial sections were obtained from above the dome of the diaphragm inferiorly through the pubic symphysis. Intravenous and oral contrast not utilized. Study has been performed as a ureteral stone protocol. Comparison: No prior CT abdomen or pelvis exam, previous abdominal x-ray performed earlier on the same day (12:33 PM). Findings: Small portion of the visualized lung bases shows nothing acute. Noncontrast appearance of the liver and spleen appears within normal limits. Small soft tissue nodule medial to the spleen is seen compatible with accessory splenic tissue. Adrenal glands show no nodule. No discrete abnormality is appreciated within the pancreas. Gallbladder contains no calcified gallstones. Aorta shows no aneurysm. No retroperitoneal adenopathy or mesenteric abnormalities are seen. The appendix is seen and appears normal. No pelvic mass or adenopathy is seen. Nonobstructing small calculus is seen within both kidneys measuring 5 mm or less in size. No ureteral dilatation is seen. No ureteral calculi are present. No bladder calculi are seen. No free fluid or inflammatory change is seen. Mild degenerative changes noted within the spine. Impression: 1. Small nonobstructing calculus within both kidneys. 2. No ureteral dilatation or ureteral stone is seen. 3. Other incidental findings. 4. No acute abnormality is appreciated on noncontrast CT study of the abdomen and pelvis performed as a ureteral stone protocol. Diagnostic code #2
[2018-06-29] MEDS ORDERED: Ketorolac 30 MG/ML SDV IVPUSH ONE (13:52)
[2018-06-29] MEDS ORDERED: Sodium Chloride 0.9% 1,000 ML IV SCH (14:00)
== END 2018-06-29 15:15 | disposition home or self-care (01) ==
LOC: JD.ED 11:48
DX: N20.0 Calculus of kidney (principal); F41.9 Anxiety disorder, unspecified; E03.9 Hypothyroidism, unspecified; F32.9 Major depressive disorder, single episode, unspecified; I10 Essential (primary) hypertension; Z88.1 Allergy status to other antibiotic agents; Z91.09 Other allergy status, other than to drugs and biological substances; Z79.899 Other long term (current) drug therapy; Z88.2 Allergy status to sulfonamides
CPT/HCPCS: 72100; 74018; 74176; 81003; 96374; 99284; A9270; J1885; J7040

== ENCOUNTER 2018-07-01 13:17 | Emergency (ER) | payer BC ==
[2018-07-01 13:32] VITALS: BP 153/92
[2018-07-01] MEDS ORDERED: Ketorolac 60 MG/2 ML SDV IM ONE (14:00)
[2018-07-01] MEDS ORDERED: Acetaminophen/oxyCODONE 325-5 MG Tab PO ONE (14:01)
--- NOTE | 2018-07-01 14:18 | EDM.PDOC ---
ED HPI GENERAL MEDICAL PROBLEM - General Chief Complaint: Back Pain or Injury Stated Complaint: BACK PAIN NOT BETTER Time Seen by Provider: 07/01/18 13:35 Source of Information: Reports: Patient History Limitations: Reports: No Limitations - History of Present Illness INITIAL COMMENTS - FREE TEXT/NARRATIVE: Patient is a 47-year-old female who presents to the ED complaining of moderate low back pain with no radiation this started approximately 2 weeks ago after falling. She was evaluated emergency department had x-ray of the lumbar spine obtained which indicated no acute bony abnormalities. States the pain has persisted and waxes and wanes in intensity. She is under chronic pain management with [facility] Segal for left knee pain. She also has some neuropathy. She is on the Lyrica, oxycodone, lorazepam and zolpidem, and has noted minimal relief with these medications. She also complains of dry mouth and also pain to her tongue and throat. This has been going on for the past 2 days. Has noted some difficulty with swallowing due to increasing pain. She does note some sinus congestion with postnasal drip. 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 She denies any fever, neck pain, headaches, chest pain, shortness of breath, abdominal pain, nausea vomiting, abnormal vaginal discharge and/or any additional complaints. She states she is mildly depressed with her current situation. She's not as active she wants to be. She's had a right total knee replacement. She is scheduled to have a left total knee replacement this coming fall. She is worried that she's not able to finish out the last 3 days of school due to her worsening discomfort. She was evaluated emergency department [address] of the abdomen and pelvis obtained since there was blood within her urine. CT of the abdomen and pelvis revealed small nonobstructing calculus within both kidneys. There is no ureteral dilatation or ureteral stone is seen. Patient got relief with IV fluids and Toradol. Of note patient has no prior history to injury to the low back that required surgical intervention. There is no radiculopathy down the backside of her legs and/or history of incontinence to urine or stool. 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 Lower Back Pain Score (Numeric/FACES): 6 - Related Data Allergies Allergy/AdvReac Type Severity Reaction Status Date / Time adhesive Allergy Rash Verified 07/01/18 13:32 doxycycline AdvReac Nausea Verified 07/01/18 13:32 Sulfa (Sulfonamide AdvReac Tachycardia Verified 07/01/18 13:32 Antibiotics) Home Meds: Home Meds LORazepam [Ativan] 1 mg PO QID PRN 11/08/14 [History] Levothyroxine 112 mcg PO DAILY 11/08/14 [History] Verapamil [Verelan] 240 mg PO DAILY 11/08/14 [History] buPROPion [Wellbutrin XL] 450 mg PO DAILY 11/08/14 [History] Pregabalin [Lyrica] 150 mg PO BID PRN 08/19/16 [History] Zolpidem [Ambien] 10 mg PO BEDTIME PRN 08/19/16 [History] Pantoprazole Sodium [Protonix] 40 mg PO DAILY 08/06/17 [History] Escitalopram [Lexapro] 20 mg PO DAILY 06/29/18 [History] Past Medical History HEENT History: Reports: Other (See Below) Other HEENT History: wears glasses Cardiovascular History: Reports: Hypertension Respiratory History: Reports: None Other Respiratory History: walking pneumonia Gastrointestinal History: Reports: GERD, Other (See Below) Other Gastrointestinal History: Postoperative nausea and vomiting Genitourinary History: Reports: None Other Genitourinary History: issues with bladder- hard time starting stream 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: Musculoskeletal History: Reports: Other (See Below) Other Musculoskeletal History: Right knee pain Neurological History: Reports: Other (See Below) Other Neuro History: Resendez's Palsy Psychiatric History: Reports: Anxiety, Depression, Other (See Below) Other Psychiatric History: Grief, insomnia Endocrine/Metabolic History: Reports: Hypothyroidism Hematologic History: Reports: None Immunologic History: Reports: None Oncologic (Cancer) History: Reports: None Dermatologic History: Reports: None - Past Surgical History Head Surgeries/Procedures: Reports: None HEENT Surgical History: Reports: Tonsillectomy Cardiovascular Surgical History: Reports: None Respiratory Surgical History: Reports: None GI Surgical History: Reports: None Female Surgical History: Reports: Hysterectomy Endocrine Surgical History: Reports: None Neurological Surgical History: Reports: None Musculoskeletal Surgical History: Reports: Knee Replacement Other Musculoskeletal Surgeries/Procedures:: right Oncologic Surgical History: Reports: None Dermatological Surgical History: Reports: None Social & Family History - Tobacco Use Smoking Status *Q: Never Smoker Second Hand Smoke Exposure: No - Caffeine Use Caffeine Use: Reports: Soda - Recreational Drug Use Recreational Drug Use: No - Living Situation & Occupation Living situation: Reports: , with Spouse ED ROS GENERAL - Review of Systems Review Of Systems: ROS reveals no pertinent complaints other than HPI. ED EXAM,LOWER BACK PAIN/INJURY - Physical Exam Exam: See Below Exam Limited By: No Limitations General Appearance: Alert, WD/WN, Mild Distress Ears: Hearing Grossly Normal Nose: Normal Inspection Throat/Mouth: Normal Inspection, Normal Oropharynx, Normal Voice, No Airway Compromise Head: Atraumatic, Normocephalic Neck: Normal Inspection, Supple, Non-Tender, Full Range of Motion. No: Lymphadenopathy (L), Lymphadenopathy (R) Respiratory/Chest: No Respiratory Distress, Lungs Clear, Normal Breath Sounds, No Accessory Muscle Use, Chest Non-Tender Cardiovascular: Normal Peripheral Pulses, Regular Rate, Rhythm, No Murmur GI/Abdominal: Normal Bowel Sounds, Soft, Non-Tender, No Organomegaly, No Distention Back Exam: Normal Inspection, Paraspinal Tenderness (lumbar spine belt line), Vertebral Tenderness (lumbar spine belt line), Other (Bilateral SI joint discomfort.). No: CVA Tenderness (L), CVA Tenderness (R), Muscle Spasm Extremities: Normal Inspection, Normal Range of Motion, Non-Tender, Other ( Bilateral chronic pedal edema.) Neurological: Alert, Normal Mood/Affect, CN II-XII Intact, No Motor/Sensory Deficits, Oriented x 3. No: Straight Leg Raise (L), Straight Leg Raise (R), Saddle Anesthesia (Per patient) Psychiatric: Normal Affect, Normal Mood Skin Exam: Warm, Dry, Intact, Normal Color, No Rash Course - Vital Signs Last Recorded V/S: Last Vital Signs Temp 97.9 F 07/01/18 13:28 Pulse 85 07/01/18 13:28 Resp 16 07/01/18 13:28 BP 153/92 H 07/01/18 13:28 Pulse Ox 91 L 07/01/18 13:28 - Orders/Labs/Meds Labs: Laboratory Tests 07/01/18 07/01/18 07/01/18 Range/Units 14:06 14:15 14:15 WBC 6.11 (3.98-10.04) K/mm3 RBC 4.16 (3.98-5.22) M/mm3 Hgb 11.6 D (11.2-15.7) gm/L Hct 35.9 (34.1-44.9) % MCV 86.3 (79.4-94.8) fl MCH 27.9 (25.6-32.2) pg MCHC 32.3 (32.2-35.5) g/dl RDW Std Deviation 45.9 (36.4-46.3) fL Plt Count 381 H (182-369) K/mm3 MPV 8.8 L (9.4-12.3) fl Neutrophils % (Manual) 52 (40-60) % Band Neutrophils % 0 (0-10) % Lymphocytes % (Manual) 29 (20-40) % Atypical Lymphs % 0 % Monocytes % (Manual) 12 H (2-10) % Eosinophils % (Manual) 7 H (0.7-5.8) % Basophils % (Manual) 0 L (0.1-1.2) Platelet Estimate Adequate Plt Morphology Comment Normal RBC Morph Comment Normal ESR 54 H (0-20) mm/hr Sodium (136-145) mEq/L Potassium (3.5-5.1) mEq/L Chloride (98-107) mEq/L Carbon Dioxide (21-32) mEq/L Anion Gap (5-15) BUN (7-18) mg/dL Creatinine (0.55-1.02) mg/dL Est Cr Clr Drug Dosing mL/min Estimated GFR (MDRD) (>60) mL/min BUN/Creatinine Ratio (14-18) Glucose (74-106) mg/dL Calcium (8.5-10.1) mg/dL Total Bilirubin (0.2-1.0) mg/dL AST (15-37) U/L ALT (14-59) U/L Alkaline Phosphatase (46-116) U/L C-Reactive Protein (<1.0) mg/dL Total Protein (6.4-8.2) g/dl Albumin (3.4-5.0) g/dl Globulin gm/dL Albumin/Globulin Ratio (1-2) Vitamin B12 (193-986) pg/ml Folate (8.6-58.9) ng/mL Urine Color Light yellow (Yellow) Urine Appearance Clear (Clear) Urine pH 8.0 (5.0-8.0) Ur Specific [place] 1.015 (1.005-1.030) Urine Protein Negative (Negative) Urine Glucose (UA) Negative (Negative) Urine Ketones Negative (Negative) Urine Occult Blood Negative (Negative) Urine Nitrite Negative (Negative) Urine Bilirubin Negative (Negative) Urine Urobilinogen 0.2 (0.2-1.0) Ur Leukocyte Esterase Negative (Negative) Urine RBC Not seen (0-5) /hpf Urine WBC Not seen (0-5) /hpf Ur Epithelial Cells 0-5 (0-5) /hpf Urine Bacteria Rare (FEW) /hpf Urine Mucus Not seen (FEW) /hpf 07/01/18 07/01/18 Range/Units 14:15 14:15 WBC (3.98-10.04) K/mm3 RBC (3.98-5.22) M/mm3 Hgb (11.2-15.7) gm/L Hct (34.1-44.9) % MCV (79.4-94.8) fl MCH (25.6-32.2) pg MCHC (32.2-35.5) g/dl RDW Std Deviation (36.4-46.3) fL Plt Count (182-369) K/mm3 MPV (9.4-12.3) fl Neutrophils % (Manual) (40-60) % Band Neutrophils % (0-10) % Lymphocytes % (Manual) (20-40) % Atypical Lymphs % % Monocytes % (Manual) (2-10) % Eosinophils % (Manual) (0.7-5.8) % Basophils % (Manual) (0.1-1.2) Platelet Estimate Plt Morphology Comment RBC Morph Comment ESR (0-20) mm/hr Sodium 146 H (136-145) mEq/L Potassium 3.9 (3.5-5.1) mEq/L Chloride 106 (98-107) mEq/L Carbon Dioxide 32 (21-32) mEq/L Anion Gap 11.9 (5-15) BUN 6 L (7-18) mg/dL Creatinine 0.7 (0.55-1.02) mg/dL Est Cr Clr Drug Dosing 83.07 mL/min Estimated GFR (MDRD) > 60 (>60) mL/min BUN/Creatinine Ratio 8.6 L (14-18) Glucose 106 (74-106) mg/dL Calcium 8.6 (8.5-10.1) mg/dL Total Bilirubin 0.3 (0.2-1.0) mg/dL AST 292 H (15-37) U/L ALT 172 H (14-59) U/L Alkaline Phosphatase 77 (46-116) U/L C-Reactive Protein 8.7 H* (<1.0) mg/dL Total Protein 6.8 (6.4-8.2) g/dl Albumin 3.1 L (3.4-5.0) g/dl Globulin 3.7 gm/dL Albumin/Globulin Ratio 0.8 L (1-2) Vitamin B12 547 (193-986) pg/ml Folate 28.5 (8.6-58.9) ng/mL Urine Color (Yellow) Urine Appearance (Clear) Urine pH (5.0-8.0) Ur Specific [place] (1.005-1.030) Urine Protein (Negative) Urine Glucose (UA) (Negative) Urine Ketones (Negative) Urine Occult Blood (Negative) Urine Nitrite (Negative) Urine Bilirubin (Negative) Urine Urobilinogen (0.2-1.0) Ur Leukocyte Esterase (Negative) Urine RBC (0-5) /hpf Urine WBC (0-5) /hpf Ur Epithelial Cells (0-5) /hpf Urine Bacteria (FEW) /hpf Urine Mucus (FEW) /hpf Meds: Medications Discontinued Medications Generic Name Dose Route Start Last Admin Trade Name Freq PRN Reason Stop Dose Admin Ketorolac Tromethamine 60 mg 07/01/18 14:00 07/01/18 14:09 Toradol IM 07/01/18 14:01 60 mg ONETIME ONE Administration Oxycodone/Acetaminophen 2 tab 07/01/18 14:01 07/01/18 14:09 Percocet 325-5 Mg PO 07/01/18 14:02 2 tab ONETIME ONE Administration - Re-Assessments/Exams Free Text/Narrative Re-Assessment/Exam: Patient complains of lower lumbar back discomfort that does not radiate. Dull ache persistent over the past 2 weeks after falling. In addition she also complains of some generalized sensitivity to her skin along with sore throat and sensation tongue is swelling with some pain. For pain I have ordered Toradol 60 mg IM and also percocet 2 tabs by mouth. Initial labs will include CBC, chem 14, CRP, ESR, folic acid, vitamin B-12, strep screen, and UA. I've offered to obtain CT of the lumbar spine to further differentiate cause of discomfort. Patient has refused. Patient will require MRI of the lumbar spine to further differentiate the cause of discomfort. This can be taken place an outpatient basis. Labs reviewed: WBC 6.11. Hemoglobin 11.6. Platelet count elevated 381. ESR 54. Sodium 146. Potassium 0.9. Creatinine normal. AST 292. ALT 172. CRP 8.7. Vitamin B12 547. Folate 28.5. UA negative. Strep screen was negative. Unclear cause of elevated LFTs. Per patient her labs obtained earlier in the week were normal. Patient denies any IV drug use, excessive alcohol use, excessive use of Tylenol, and/or exposure to hepatitis. Inflammatory markers are elevated with unclear reason why. Patient has no history of autoimmune disease or any infectious concerns at this time. I am concerned she may have discitis with persistent pain to her low back after recent fall. She has had no fevers thus blood cultures are not required. MRI will be able to rule this out. In addition as for the tongue pain. She does not have b12 or folic acid deficiency. Patient has been struggling with depression/anxiety and is treated for this. The general pain complaint is concerning for fibromyalgia. 1547 Reassessment, patient states she's feeling much better after the above therapies. She is ready to be discharged home. Requests I will discharge patient on Percocet rather than her taking the oxycodone ER 10 mg. Short course of percocet will be provided with instructions to stop taking the oxycodone er due to the synergistic effect. She'll be discharged home with naproxen with instructions to not take any additional anti-inflammatories. MRI of the lumbar spine will be obtained on outpatient basis. I will have patient follow up with PCP over the next 2 days for reevaluation. Patient is aware she is not able to drive since receiving a sedative medication while in the ED. Return precautions were discussed with the patient. Departure - Departure Time of Disposition: 15:56 Disposition: Home, Self-Care 01 Condition: Good Clinical Impression: Elevated LFTs, Elevated C-reactive protein (CRP), Elevated erythrocyte sedimentation rate Low back pain Qualifiers: Chronicity: acute Back pain laterality: bilateral Sciatica presence: without sciatica Qualified Code(s): M54.5 - Low back pain - Discharge Information Instructions: Liver Function Tests, Acute Back Pain, Adult, Erythrocyte Sedimentation Rate Test Referrals: Lia Segal NP [Primary Care Provider] - Forms: ED Department Discharge Additional Instructions: As discussed will obtain MRI of the lumbar spine on a outpatient basis. Order has been placed. They will contact you for appointment time. Pain management will consist of Percocet one tablet every 6 hours for the next 2 days when necessary for pain. Do not take any of your home pain medications due to synergistic effect with taking multiple narcotics. Utilize naproxen one tab twice a day as well. Push the fluids. Take miralax, 1 capful daily while on narcotics. Make an appt with PCP to be evaluated tomorrow or Monday of this week and for results of MRI once available. Further pain management should go through PCP. In addition liver function tests were elevated with unclear etiology. Hepatitis panel has been obtained. Furthermore further evaluation for elevated inflammatory markers should be pursued by PCP. We do not have a clear indication why these are elevated. Discitis is a possibility and MRI of the lumbar spine should rule this out.
== END 2018-07-01 16:20 | disposition home or self-care (01) ==
LOC: JD.ED 13:17
DX: M54.5 Low back pain (principal); R94.5 Abnormal results of liver function studies; R79.82 Elevated C-reactive protein (CRP); R70.0 Elevated erythrocyte sedimentation rate; I10 Essential (primary) hypertension; F41.9 Anxiety disorder, unspecified; F32.9 Major depressive disorder, single episode, unspecified; Z98.890 Other specified postprocedural states; Z88.2 Allergy status to sulfonamides; Z88.8 Allergy status to other drugs, medicaments and biological substances; Z79.899 Other long term (current) drug therapy; Z90.710 Acquired absence of both cervix and uterus
CPT/HCPCS: 36415; 80053; 80074; 81001; 82607; 82746; 85007; 85027; 85652; 86140; 87081; 87430; 96372; 99283; A9270; J1885

== ENCOUNTER 2018-12-20 07:34 | Emergency (ER) | payer BC ==
--- NOTE | 2018-12-20 07:41 | EDM.PDOC ---
ED HPI GENERAL MEDICAL PROBLEM - General Chief Complaint: Lower Extremity Injury/Pain Stated Complaint: RIGHT FOOT INJURY Time Seen by Provider: 12/20/18 07:39 - History of Present Illness INITIAL COMMENTS - FREE TEXT/NARRATIVE: 48-year-old female presents emergency room with right ankle pain. Patient has an ongoing issue with pain in this area however it's usually in the medial aspect. It acted up on the medial side several weeks ago and had a workup done for DVTs ultrasound was negative. The patient uses long-acting and short acting oxycodone she is using ibuprofen but is unable to provide how much she is actually taking. Patient has a history of kidney stones but no history of kidney failure. The pain is more on the lateral side just above and below the lateral malleolus. She has significant discomfort when she initiates ambulation from a resting position such as sitting or laying down. The patient has had ankle pain on the side for well over a year now. 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 Griffin, the patient has not appointment to see him early next week. She also has a primary care provider in [facility]. Right Ankle Pain Score (Numeric/FACES): 7 - Related Data Allergies Allergy/AdvReac Type Severity Reaction Status Date / Time adhesive Allergy Rash Verified 12/20/18 07:42 doxycycline AdvReac Nausea Verified 12/20/18 07:42 Sulfa (Sulfonamide AdvReac Tachycardia Verified 12/20/18 07:42 Antibiotics) Home Meds: Home Meds LORazepam [Ativan] 1 mg PO QID PRN 11/08/14 [History] Levothyroxine 112 mcg PO DAILY 11/08/14 [History] Verapamil [Verelan] 240 mg PO DAILY 11/08/14 [History] buPROPion [Wellbutrin XL] 450 mg PO DAILY 11/08/14 [History] Pregabalin [Lyrica] 150 mg PO BID PRN 08/19/16 [History] Zolpidem [Ambien] 10 mg PO BEDTIME PRN 08/19/16 [History] Pantoprazole Sodium [Protonix] 40 mg PO DAILY 08/06/17 [History] Escitalopram [Lexapro] 20 mg PO DAILY 06/29/18 [History] Naproxen [Naprosyn] 500 mg PO Q12HR #20 tab 12/20/18 [Rx] Past Medical History HEENT History: Reports: Other (See Below) Other HEENT History: wears glasses Cardiovascular History: Reports: Hypertension Respiratory History: Reports: None Other Respiratory History: walking pneumonia Gastrointestinal History: Reports: GERD, Other (See Below) Other Gastrointestinal History: Postoperative nausea and vomiting Genitourinary History: Reports: None Other Genitourinary History: issues with bladder- 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 time 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: Musculoskeletal History: Reports: Other (See Below) Other Musculoskeletal History: Right knee pain Neurological History: Reports: Other (See Below) Other Neuro History: Resendez's Palsy Psychiatric History: Reports: Anxiety, Depression, Other (See Below) Other Psychiatric History: Grief, insomnia Endocrine/Metabolic History: Reports: Hypothyroidism Hematologic History: Reports: None Immunologic History: Reports: None Oncologic (Cancer) History: Reports: None Dermatologic History: Reports: None - Past Surgical History Head Surgeries/Procedures: Reports: None HEENT Surgical History: Reports: Tonsillectomy Cardiovascular Surgical History: Reports: None Respiratory Surgical History: Reports: None GI Surgical History: Reports: None Female Surgical History: Reports: Hysterectomy Endocrine Surgical History: Reports: None Neurological Surgical History: Reports: None Musculoskeletal Surgical History: Reports: Knee Replacement Other Musculoskeletal Surgeries/Procedures:: right Oncologic Surgical History: Reports: None Dermatological Surgical History: Reports: None Social & Family History - Caffeine Use Caffeine Use: Reports: Soda - Living Situation & Occupation Living situation: Reports: , with Spouse Review of Systems - Review of Systems Review Of Systems: See Below Constitutional: Reports: No Symptoms Respiratory: Reports: No Symptoms Cardiovascular: Reports: No Symptoms GI/Abdominal: Reports: No Symptoms ED EXAM, GENERAL - Physical Exam Exam: See Below Exam Limited By: No Limitations General Appearance: Alert, No Apparent Distress Respiratory/Chest: No Respiratory Distress, Lungs Clear, Normal Breath Sounds Cardiovascular: Regular Rate, Rhythm, No Edema, No Murmur Extremities: Other (Examination of her right lower leg foot ankle shows tenderness with palpation over the calcaneus in the distribution of the medial calcaneal nerve, however no palpable lamp cord sign. And her pain is mostly lateral not medial. She has some nonspecific tenderness up the backside of the lateral malleolus both inferior to and superior to the lateral malleolus. This does not extend into the leg. Her body habitus is that of a very obese individual there is no obvious edema or swelling in the area.) Course - Vital Signs Last Recorded V/S: Last Vital Signs Temp 36.3 C 12/20/18 07:39 Pulse 96 12/20/18 07:39 Resp 19 12/20/18 07:39 BP 159/105 H 12/20/18 07:39 Pulse Ox 98 12/20/18 07:39 - Orders/Labs/Meds Orders: Active Orders 24 hr Category Date Time Status Ankle Min 3V Rt [CR] Stat Exams 12/20/18 07:54 Taken Calcaneous Rt [CR] Stat Exams 12/20/18 08:04 Taken Labs: Laboratory Tests 12/20/18 12/20/18 Range/Units 08:40 08:40 D-Dimer, Quantitative 0.45 (0.19-0.50) mg/L Sodium 140 (136-145) mEq/L Potassium 4.6 (3.5-5.1) mEq/L Chloride 104 (98-107) mEq/L Carbon Dioxide 28 (21-32) mEq/L Anion Gap 12.6 (5-15) BUN 12 (7-18) mg/dL Creatinine 0.8 (0.55-1.02) mg/dL Est Cr Clr Drug Dosing 78.23 mL/min Estimated GFR (MDRD) > 60 (>60) mL/min BUN/Creatinine Ratio 15.0 (14-18) Glucose 113 H (74-106) mg/dL Calcium 9.4 (8.5-10.1) mg/dL Meds: Medications Discontinued Medications Generic Name Dose Route Start Last Admin Trade Name Zahraa PRN Reason Stop Dose Admin Hydromorphone HCl 1 mg 12/20/18 08:43 12/20/18 08:49 Dilaudid IM 12/20/18 08:44 1 mg ONETIME ONE Administration - Re-Assessments/Exams Free Text/Narrative Re-Assessment/Exam: 12/20/18 08:23 Trace the calcaneus and ankle show significant arthritis around the ankle no acute changes calcaneus shows a heel spur which is not causing her problems no obvious fracture dislocation or other acute abnormality in either series identified. 12/20/18 09:21 D-dimer still pending. Basic metabolic panel shows no significant renal issues so she can safely be started on nonsteroidal with close monitoring of her blood pressure. 12/20/18 09:36 D-dimer negative we will have the patient stay off her right foot and ankle as much as she can using her scooter and a walker the patient cannot use crutches. She was started on Naprosyn 500 mg twice daily as Tylenol does not work for her Departure - Departure Time of Disposition: 09:37 Disposition: Home, Self-Care 01 Clinical Impression: Right ankle pain, Degenerative joint disease, right, ankle, Chronic pain of right heel - Discharge Information Prescriptions: Naproxen [Naprosyn] 500 mg PO Q12HR #20 tab Referrals: Lia Segal NP [Primary Care Provider] - Forms: ED Department Discharge, ED Return to Work/School Form Additional Instructions: Return to emergency room if any questions problems worsening symptoms. Follow-up with Dr. Griffin today as scheduled, this coming Monday. Stay off your foot as much as you can using your walker and scooter. Take the Naprosyn as directed. Follow-up he regular provider on Monday to have blood pressure rechecked. - My Orders Last 24 Hours: My Active Orders 12/20/18 07:54 Ankle Min 3V Rt [CR] Stat 12/20/18 08:04 Calcaneous Rt [CR] Stat - Assessment/Plan Last 24 Hours: My Active Orders 12/20/18 07:54 Ankle Min 3V Rt [CR] Stat 12/20/18 08:04 Calcaneous Rt [CR] Stat
[2018-12-20 07:42] VITALS: BP 159/105; PULSE 96
[2018-12-20] MEDS ORDERED: HYDROmorphone 1 MG/ML Syringe IM ONE (08:43)
--- NOTE | 2018-12-20 10:02 | CR ---
Right calcaneus: Two views of the right calcaneus were obtained. Plantar spur is noted. Large bony exostosis is noted off the anterior and dorsal talus. This could cause some impingement with dorsiflexion. Joint space narrowing is scattered within the midfoot. No acute abnormality is appreciated. Impression: 1. Findings as noted above. 2. Nothing acute is seen. Diagnostic code #2
--- NOTE | 2018-12-20 10:02 | CR ---
Right ankle: Four views of the right ankle were obtained. Comparison: Previous right ankle MRI of 02/09/18. Plantar spur is noted. Ankle mortise is symmetric. Mild joint space narrowing felt to be present within the midfoot. No acute fracture or other abnormality is appreciated. Impression: 1. Plantar spur. 2. Joint space narrowing within the midfoot. 3. Right ankle study is otherwise unremarkable. Diagnostic code #2
== END 2018-12-20 09:51 | disposition home or self-care (01) ==
LOC: JD.ED 07:34
DX: M17.11 Unilateral primary osteoarthritis, right knee (principal); I10 Essential (primary) hypertension; K21.9 Gastro-esophageal reflux disease without esophagitis; F41.9 Anxiety disorder, unspecified; F32.9 Major depressive disorder, single episode, unspecified; E03.9 Hypothyroidism, unspecified; Z91.048 Other nonmedicinal substance allergy status; Z88.1 Allergy status to other antibiotic agents; Z88.2 Allergy status to sulfonamides; Z79.890 Hormone replacement therapy; Z79.899 Other long term (current) drug therapy
CPT/HCPCS: 36415; 73610; 73650; 80048; 85379; 96372; 99283; J1170

== ENCOUNTER 2019-02-17 18:21 | Emergency (ER) | payer BC ==
[2019-02-17 18:34] VITALS: BP 146/74; PULSE 91
--- NOTE | 2019-02-17 19:37 | EDM.PDOC ---
ED HPI GENERAL MEDICAL PROBLEM - General Chief Complaint: Skin Complaint Stated Complaint: RASH Time Seen by Provider: 02/17/19 19:11 Source of Information: Reports: Patient History Limitations: Reports: No Limitations - History of Present Illness INITIAL COMMENTS - FREE TEXT/NARRATIVE: Mrs. Rivera is a pleasant 48-year-old woman with a past history significant for anxiety and depression, who states that she has had a "staph infection" under her breasts and under her abdominal pannus for the past 2 months. She saw her PCP about 1.5 months ago, and was told that it was a staph infection, and prescribed an antibiotic, whose name she does not recall, that she took up until yesterday. She also used an lyhy-idn-jecbgep fungal cream, and her symptoms have significantly improved. The patient now presents to the ED after waking this morning and feeling like the proximal dorsal aspects of her bilateral upper extremities were swollen. She was immediately concerned that she has cancer. No redness or drainage from either area, and no recent fever. No prior similar symptoms. The patient also feels like her right arm is swollen, when compared to the left , although acknowledges that this feeling may be due to her anxiety. She also reports that her right calf is firm today. This has occurred on and off over the past 2 years. A Doppler ultrasound of her right leg was apparently negative in November. Lastly, the patient also reports that her skin is itchy, chronically. The patient's PCP is Lia Segal NP. Her Orthopedic Surgeon is Dr. Sujit Griffin. - Related Data Allergies Allergy/AdvReac Type Severity Reaction Status Date / Time adhesive Allergy Rash Verified 02/17/19 18:34 morphine Allergy Swelling Verified 02/17/19 18:34 doxycycline AdvReac Nausea Verified 02/17/19 18:34 Sulfa (Sulfonamide AdvReac Tachycardia Verified 02/17/19 18:34 Antibiotics) Home Meds: Home Meds LORazepam [Ativan] 1 mg PO QID PRN 11/08/14 [History] Levothyroxine 112 mcg PO DAILY 11/08/14 [History] Verapamil [Verelan] 240 mg PO DAILY 11/08/14 [History] buPROPion [Wellbutrin XL] 450 mg PO DAILY 11/08/14 [History] Pregabalin [Lyrica] 150 mg PO BID PRN 08/19/16 [History] Zolpidem [Ambien] 10 mg PO BEDTIME PRN 08/19/16 [History] Pantoprazole Sodium [Protonix] 40 mg PO DAILY 08/06/17 [History] Escitalopram [Lexapro] 20 mg PO DAILY 06/29/18 [History] Past Medical History HEENT History: Reports: Impaired Vision Other HEENT History: wears glasses Cardiovascular History: Reports: Hypertension Gastrointestinal History: Reports: GERD Genitourinary History: Reports: Renal Calculus 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: Endometriosis (laparoscopy-confirmed), Musculoskeletal History: Reports: Osteoarthritis Psychiatric History: Reports: Anxiety, Depression, Other (See Below) (Insomnia) Endocrine/Metabolic History: Reports: Hypothyroidism, Obesity/BMI 30+ Hematologic History: Reports: None Immunologic History: Reports: None Oncologic (Cancer) History: Reports: None Dermatologic History: Reports: None - Past Surgical History HEENT Surgical History: Reports: Oral Surgery (wisdom teeth extraction), Tonsillectomy Female Surgical History: Reports: Hysterectomy (partial), Other (See Below) ( Exploratory laparoscopy for endometriosis x 6) Musculoskeletal Surgical History: Reports: Arthroscopic Knee (right), Knee Replacement (right) Social & Family History - Tobacco Use Smoking Status *Q: Never Smoker - Caffeine Use Caffeine Use: Reports: Coffee, Soda - Alcohol Use Alcohol Use History: Yes Alcohol Use Frequency: Rarely - Recreational Drug Use Recreational Drug Use: No - Living Situation & Occupation Living situation: Reports: , with Spouse, with Family (2 kids) 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 ED EXAM, SKIN/RASH Exam: See Below Exam Limited By: No Limitations General Appearance: Alert, WD/WN, No Apparent Distress Extremities: Other (No visible or palpable abnormality to either axilla, such as swelling, erythema, ecchymosis, or abrasion. No palpable lymphadenopathy. The patient's right leg is enlarged/swollen, when compared to the left, and is mildly erythematous. There are a few scratches/punctate lesions to the anterior right leg. Neurovascular status of both lower extremities is intact.) Course - Vital Signs Last Recorded V/S: Last Vital Signs Temp 36.1 C 02/17/19 18:31 Pulse 91 02/17/19 18:31 Resp 16 02/17/19 18:31 BP 146/74 H 02/17/19 18:31 Pulse Ox 94 L 02/17/19 18:31 - Orders/Labs/Meds Orders: Active Orders 24 hr Category Date Time Status VL Duplex Lwr Ext Veins Ltd Rt [US] Stat Exams 02/17/19 19:40 Taken - Re-Assessments/Exams Free Text/Narrative Re-Assessment/Exam: 02/17/19 19:32 The patient's complaints appear to be primarily motivated by anxiety. There is no suggestion of an infection, or even lymphadenopathy, to either axilla. She has a relatively minor fungal infection to the intertriginous areas beneath both of her breasts and to her abdominal pannus that I am recommending she treat with a topical antifungal cream or ointment. The patient's right leg is enlarged, when compared to her left, and is mildly erythematous. The patient states that this is a recurring issue, and that she had a negative Doppler ultrasound of her right lower extremity in November, which reduces the likelihood that her current enlargement is due to a DVT, however, I explained to the patient that, from our perspective, we want to rule out emergencies, therefore I am recommending a repeat Doppler ultrasound tonight. The patient agreed. 02/17/19 21:30 Doppler ultrasound of the right lower extremity is read by Cynthia as "Negative. No deep venous thrombosis is seen." Notified by Megan DRISCOLL that the patient left the ED about 10 minutes ago, after being told by the electrical laboratory technician that her Doppler ultrasound was likely negative. Departure - Departure Time of Disposition: 21:31 Disposition: Eloped 07 Condition: Good Clinical Impression: Anxiety, Right leg swelling, Cutaneous fungal infection - Discharge Information *PRESCRIPTION DRUG MONITORING PROGRAM REVIEWED*: Not Applicable *COPY OF PRESCRIPTION DRUG MONITORING REPORT IN PATIENT PEPE: Not Applicable Referrals: Lia Segal NP [Primary Care Provider] - Forms: ED Department Discharge Sepsis Event Note - Evaluation Sepsis Screening Result: No Definite Risk - Focused Exam Vital Signs: Vital Signs Temp Pulse Resp BP Pulse Ox 02/17/19 18:31 36.1 C 91 16 146/74 H 94 L Date Exam was Performed: 02/17/19 Time Exam was Performed: 21:48 - My Orders Last 24 Hours: My Active Orders 02/17/19 19:40 VL Duplex Lwr Ext Veins Ltd Rt [US] Stat - Assessment/Plan Last 24 Hours: My Active Orders 02/17/19 19:40 VL Duplex Lwr Ext Veins Ltd Rt [US] Stat
--- NOTE | 2019-02-18 07:08 | US ---
Right lower extremity deep venous ultrasound: Duplex and color flow imaging was obtained of the right common femoral, proximal greater saphenous, superficial femoral, popliteal, posterior tibial and peroneal vein. Left common femoral vein was also evaluated. Comparison: No prior venous imaging. Findings: Normal phasic flow, augmentation and compression are seen. Impression: 1. No evidence of deep venous thrombosis within the right lower extremity or within the left common femoral vein. Diagnostic code #1 This report was dictated in Mountain Standard Time I agree with preliminary report from [facility], finalized on 02/17/19, 10:22 PM Central Time
== END 2019-02-17 21:21 | disposition left against medical advice (07) ==
LOC: JD.ED 18:21
DX: B36.9 Superficial mycosis, unspecified (principal); R22.41 Localized swelling, mass and lump, right lower limb; F41.9 Anxiety disorder, unspecified; I10 Essential (primary) hypertension; K21.9 Gastro-esophageal reflux disease without esophagitis; E03.9 Hypothyroidism, unspecified; E66.9 Obesity, unspecified; Z91.048 Other nonmedicinal substance allergy status; Z88.5 Allergy status to narcotic agent; Z88.3 Allergy status to other anti-infective agents; Z88.2 Allergy status to sulfonamides; Z79.899 Other long term (current) drug therapy; Z79.890 Hormone replacement therapy; Z68.41 Body mass index [BMI] 40.0-44.9, adult
CPT/HCPCS: 93971-26-RT; 93971-RT; 99282; 99283-25